=== PATIENT | female | born 1930 | race Caucasian/White ===

== ENCOUNTER 2018-05-21 16:24 | Emergency (ER) | payer MEDICARE, BC ==
[2018-05-21] MEDS ORDERED: HYDROmorphone 2 MG/ML Syringe ONE (16:46)
[2018-05-21] MEDS: HYDROmorphone 2 MG/ML Syringe IVPUSH ONE (16:50)
[2018-05-21] MEDS: Ketorolac 30 MG/ML SDV IM ONE ×2 (16:51→17:12)
[2018-05-21] MEDS: Ketorolac 30 MG/ML SDV ONE (16:56)
--- NOTE | 2018-05-21 17:08 | EDM.PDOC ---
ED HPI GENERAL MEDICAL PROBLEM - General Time Seen by Provider: 05/21/18 16:30 Source of Information: Reports: Patient History Limitations: Reports: No Limitations - History of Present Illness INITIAL COMMENTS - FREE TEXT/NARRATIVE: Pt is 87 tra old female presenting to emergency room with c/o pain in her right mid back. Pt claims it started when she was sitting on folding chair for long time in the house yesterday afternoon. When she got up felt severe sharp pain in her right midback. Since then every time she move her back gets spasms in her back. No radiation of pain. no weakness. tingling or numbness. Pt did try some vicodin last night and today morning. Has been sleeping with heating pad on but no improvement in pain. rates pain around 7-8/10. No other complaints. Onset Date: 05/21/18 Onset Time: 14:00 Duration: Getting Worse Location: Reports: Back Quality: Reports: Ache Severity: Moderate Improves with: Reports: None Worsens with: Reports: None Associated Symptoms: Denies: Confusion, Chest Pain, Cough, Diaphoresis, Fever/ Chills, Headaches, Nausea/Vomiting, Rash, Shortness of Breath, Weakness - Related Data Allergies Allergy/AdvReac Type Severity Reaction Status Date / Time cefaclor Allergy Rash Verified 05/21/18 16:47 diltiazem [From Cardizem] Allergy Rash Verified 05/21/18 16:51 hydrochlorothiazide Allergy Rash Verified 05/21/18 16:51 indapamide Allergy Rash Verified 05/21/18 16:51 lisinopril Allergy Rash Verified 05/21/18 16:51 metoclopramide [From Reglan] Allergy Rash Verified 05/21/18 16:51 morphine Allergy Itching Verified 05/21/18 16:47 moxifloxacin [From Avelox] Allergy Rash Verified 05/21/18 16:51 nitrofurantoin Allergy Rash Verified 05/21/18 16:51 Penicillins Allergy Rash Verified 05/21/18 16:47 sertraline [From Zoloft] Allergy Rash Verified 05/21/18 16:51 Sulfa (Sulfonamide Allergy Rash Verified 05/21/18 16:47 Antibiotics) tetrahydrozoline Allergy Rash Verified 05/21/18 16:51 ED ROS GENERAL - Review of Systems Review Of Systems: See Below Constitutional: Denies: Fever, Chills HEENT: Denies: Rhinitis, Throat Pain, Throat Swelling Respiratory: Denies: Shortness of Breath, Pleuritic Chest Pain, Cough, Sputum Cardiovascular: Denies: Chest Pain, Lightheadedness GI/Abdominal: Denies: Abdominal Pain, Nausea, Vomiting Musculoskeletal: Reports: Back Pain. Denies: Joint Pain, Joint Swelling Skin: Denies: Bruising, Pruritis, Rash Neurological: Denies: Confusion, Dizziness, Headache, Numbness, Tingling ED EXAM, GENERAL - Physical Exam Exam: See Below Exam Limited By: No Limitations General Appearance: Alert, WD/WN, Mild Distress Eye Exam: Bilateral Eye: EOMI, PERRL Ears: Normal External Exam, Normal Canal, Hearing Grossly Normal, Normal TMs Ear Exam: Bilateral Ear: Auricle Normal, Canal Normal, TM normal Nose: Normal Inspection, Normal Mucosa, No Blood Throat/Mouth: Normal Inspection, Normal Lips, Normal Teeth, Normal Gums, Normal Oropharynx, Normal Voice, No Airway Compromise Head: Atraumatic, Normocephalic Neck: Normal Inspection, Supple, Non-Tender, Full Range of Motion Respiratory/Chest: No Respiratory Distress, Lungs Clear, Normal Breath Sounds, No Accessory Muscle Use, Chest Non-Tender Cardiovascular: Normal Peripheral Pulses, Regular Rate, Rhythm, No Edema, No Gallop, No JVD, No Murmur, No Rub Back Exam: Normal Inspection, Decreased Range of Motion, Muscle Spasm (right mid thoracic region), Paraspinal Tenderness (right mid thoracic region). No: CVA Tenderness (R), CVA Tenderness (L), Vertebral Tenderness Neurological: Alert, Oriented, No Motor/Sensory Deficits Course - Vital Signs Text/Narrative:: Pt reassured that she has acute back muscle spasm. As her pain is localised and 8/10 in severity, she did receive Dilaudid 1mg with toradol 30mg IM. I have started her on Vicodin 5/325 with Toradol 10mg to alternate every 4 hrs for good pain control. Also Flexeril 5mg at bedtime. Advised intermittent heat for 15 minutes every 2-3 hrs. pain should gradually improve. Followup in clinic if pain not better in 3- 5days. - Orders/Labs/Meds Meds: Medications Discontinued Medications Generic Name Dose Route Start Last Admin Trade Name Freq PRN Reason Stop Dose Admin Hydromorphone HCl Confirm 05/21/18 16:46 Dilaudid Administered 05/21/18 16:47 Dose 2 mg .ROUTE .STK-MED ONE Hydromorphone HCl 1 mg 05/21/18 16:51 05/21/18 16:50 Dilaudid IVPUSH 05/21/18 16:52 1 mg ONETIME ONE Administration Ketorolac Tromethamine Confirm 05/21/18 16:46 05/21/18 16:56 Toradol Administered 05/21/18 16:47 Not Given Dose 30 mg .ROUTE .STK-MED ONE Ketorolac Tromethamine 30 mg 05/21/18 16:55 05/21/18 16:51 Toradol IM 05/21/18 16:56 30 mg ONETIME ONE Administration Departure - Departure Time of Disposition: 17:20 Disposition: Home, Self-Care 01 Condition: Good Clinical Impression: Back muscle spasm - Discharge Information *PRESCRIPTION DRUG MONITORING PROGRAM REVIEWED*: Not Applicable *COPY OF PRESCRIPTION DRUG MONITORING REPORT IN PATIENT ANDRE: Not Applicable Instructions: Muscle Cramps and Spasms, [id number] Referrals: PCP,None [Primary Care Provider] - Additional Instructions: Pt reassured that she has acute back muscle spasm. As her pain is localised and 8/10 in severity, she did receive Dilaudid 1mg with toradol 30mg IM. I have started her on Vicodin 5/325 with Toradol 10mg to alternate every 4 hrs for good pain control. Also Flexeril 5mg at bedtime. Advised intermittent heat for 15 minutes every 2-3 hrs. pain should gradually improve. Followup in clinic if pain not better in 3- 5days. - Problem List & Annotations (1) Back muscle spasm SNOMED Code(s): 523009583 Code(s): M62.830 - MUSCLE SPASM OF BACK Status: Acute Current Visit: Yes - Problem List Review Problem List Initiated/Reviewed/Updated: Yes - Assessment/Plan Assessment:: Back muscle spasm Plan: Pt reassured that she has acute back muscle spasm. As her pain is localised and 8/10 in severity, she did receive Dilaudid 1mg with toradol 30mg IM. I have started her on Vicodin 5/325 with Toradol 10mg to alternate every 4 hrs for good pain control. Also Flexeril 5mg at bedtime. Advised intermittent heat for 15 minutes every 2-3 hrs. pain should gradually improve. Followup in clinic if pain not better in 3- 5days.
[2018-05-21] MEDS: HYDROmorphone 2 MG/ML SDV IM ONE (17:12)
== END 2018-05-21 17:20 | disposition home or self-care (01) ==
LOC: LB.ED 16:24
DX: M62.830 Muscle spasm of back (principal); Z88.1 Allergy status to other antibiotic agents; Z88.5 Allergy status to narcotic agent; Z88.0 Allergy status to penicillin
CPT/HCPCS: 96372; 96374; 99283-25; J1170; J1885

== ENCOUNTER 2018-07-15 09:19 | Inpatient (IN) | payer MEDICARE ==
[2018-07-15] MEDS ORDERED: Sodium Chloride 0.9% 1,000 ML IV SCH (10:25)
[2018-07-15 10:35] LABS: HEMOGLOBIN A1C 7.2 % (4.5-6.2)
[2018-07-15] MEDS ORDERED: Sodium Chloride 0.45% 1,000 ML IV SCH (10:45)
--- NOTE | 2018-07-15 10:46 | CR ---
Date of Service: 07/15/18 Clinical Data: AP CHEST: Comparison is made to a prior exam dated 07/10/18. The patient has taken a poor inspiration. The cardiac pacer and pacer wires remain unchanged in position. The heart size is within normal limits. There are densities in both lung bases consistent with basilar atelectasis or infiltrate, pneumonia should be considered. No pneumothorax. No pleural effusions. The exam is otherwise unchanged from the prior. [id number] [facility]
[2018-07-15] MEDS ORDERED: Ondansetron 4 MG/2 ML SDV IV PRN (11:55)
[2018-07-15] MEDS ORDERED: Sodium Chloride 0.9% 10 ML Syringe FLUSH PRN (11:55)
[2018-07-15] MEDS ORDERED: Insulin Detemir 100 Units/ML 3 ML Pen ONE (12:00)
[2018-07-15] MEDS ORDERED: Trolamine Salicylate/Aloe Vera 10% Crm 85 GM Tube ONE (12:00)
[2018-07-15] MEDS ORDERED: Insulin Aspart 100 Units/ML 3 ML Pen ONE (12:00)
--- NOTE | 2018-07-15 12:01 | EDM.PDOC ---
ED HPI GENERAL MEDICAL PROBLEM - General Stated Complaint: SINUS, KNEE PAIN Time Seen by Provider: 07/15/18 09:46 Source of Information: Reports: Patient, Family History Limitations: Reports: No Limitations - History of Present Illness INITIAL COMMENTS - FREE TEXT/NARRATIVE: This is a 87yo F with generalized weakness, inability to get out of bed, cough, chest congestion, left knee pain and swelling (chronic), loss of appetite and malaise for the past day. Onset: Gradual Duration: Getting Worse Location: Reports: Generalized Severity: Severe Improves with: Reports: None Worsens with: Reports: None Associated Symptoms: Reports: Shortness of Breath, Weakness Treatments HEAD IRRIGATOR: Reports: Acetaminophen - Related Data Allergies Allergy/AdvReac Type Severity Reaction Status Date / Time adhesive tape Allergy Rash Verified 07/15/18 11:04 cefaclor Allergy Rash Verified 05/21/18 16:47 diltiazem [From Cardizem] Allergy Rash Verified 05/21/18 16:51 hydrochlorothiazide Allergy Rash Verified 05/21/18 16:51 indapamide Allergy Rash Verified 05/21/18 16:51 lisinopril Allergy Rash Verified 05/21/18 16:51 metoclopramide [From Reglan] Allergy Rash Verified 05/21/18 16:51 morphine Allergy Itching Verified 05/21/18 16:47 moxifloxacin [From Avelox] Allergy Rash Verified 05/21/18 16:51 nitrofurantoin Allergy Rash Verified 05/21/18 16:51 Penicillins Allergy Rash Verified 05/21/18 16:47 sertraline [From Zoloft] Allergy Rash Verified 05/21/18 16:51 Sulfa (Sulfonamide Allergy Rash Verified 05/21/18 16:47 Antibiotics) tetrahydrozoline Allergy Rash Verified 05/21/18 16:51 Home Meds: Home Meds Cefdinir [Omnicef] 300 mg PO BID 07/15/18 [History] Furosemide 20 mg PO WITHBREAKFAST 07/15/18 [History] Insulin Aspart [NovoLOG] 6 unit SQ ASDIRECTED 07/15/18 [History] Insulin Detemir [Levemir Flextouch] 17 unit SQ WITHLUNCH 07/15/18 [History] Losartan [Cozaar] 100 mg PO DAILY 07/15/18 [History] Melatonin/Pyridoxine HCl (B6) [Melatonin 5 mg Tablet] 5 mg PO BEDTIME PRN [History] Metoprolol Succinate [Toprol XL 100mg] 100 mg PO WITHBREAKFAST 07/15/18 [History ] Pravastatin [Pravachol] 40 mg PO DAILY 07/15/18 [History] Warfarin Sodium 1 mg ASDIRECTED 07/15/18 [History] Warfarin Sodium [Jantoven] 2 mg PO ASDIRECTED 07/15/18 [History] hydrALAZINE [Apresoline] 50 mg PO ASDIRECTED 07/15/18 [History] hydrALAZINE [Apresoline] 50 mg PO TIDMEALS 07/15/18 [History] ED ROS GENERAL - Review of Systems Review Of Systems: ROS reveals no pertinent complaints other than HPI. ED EXAM, GENERAL - Physical Exam Exam: See Below Exam Limited By: No Limitations General Appearance: Alert, WD/WN, Mild Distress Eye Exam: Bilateral Eye: EOMI, PERRL Ears: Normal External Exam Ear Exam: Bilateral Ear: TM normal Nose: Normal Inspection Throat/Mouth: Normal Inspection Head: Atraumatic, Normocephalic Neck: Normal Inspection, Supple, Non-Tender Respiratory/Chest: Decreased Breath Sounds, Crackles, Rhonchi Cardiovascular: Normal Peripheral Pulses, Regular Rate, Rhythm Peripheral Pulses: 2+: Dorsalis Pedis (L), Dorsalis Pedis (R) GI/Abdominal: Normal Bowel Sounds, Soft, Non-Tender, No Distention Extremities: Joint Swelling (left knee) Neurological: Alert, Oriented, CN II-XII Intact, Other (decreased hearing) Psychiatric: Normal Affect, Normal Mood Skin Exam: Warm, Dry, Intact Course - Vital Signs Last Recorded V/S: Last Vital Signs Temp 36.9 C 07/15/18 11:55 Pulse 59 L 07/15/18 11:55 Resp 18 07/15/18 11:55 BP 127/52 L 07/15/18 11:55 Pulse Ox 98 07/15/18 11:55 - Orders/Labs/Meds Orders: Active Orders 24 hr Category Date Time Status EKG Documentation Completion [RC] ASDIRECTED Care 07/15/18 10:01 Active CULTURE BLOOD [BC] Stat Lab 07/15/18 10:12 Received CULTURE BLOOD [BC] Stat Lab 07/15/18 10:20 Received Sodium Chloride 0.45% 1,000 ml Med 07/15/18 10:45 Active IV ASDIRECTED Medication Orders Acetaminophen (Tylenol) 650 mg PO Q4H PRN PRN Reason: Pain (Mild 1-3)/fever Furosemide (Lasix) 20 mg PO DAILY [facility] Furosemide (Lasix) 20 mg PO WITHBREAKFAST [facility] Hydralazine HCl (Apresoline) 50 mg PO TID [facility] Sodium Chloride (Sodium Chloride 0.45%) 1,000 mls @ 150 mls/hr IV ASDIRECTED DERICK Ceftriaxone Sodium 1 gm/ (Sodium Chloride) 50 mls @ 200 mls/hr IV Q24H [facility] Azithromycin 500 mg/ Sodium (Chloride) 250 mls @ 250 mls/hr IV Q24H [facility] Insulin Aspart (Novolog) 6 unit SUBCUT ASDIRECTED [facility] Last Admin: 07/15/18 13:00 Dose: 6 units Insulin Aspart (Novolog) 6 unit SUBCUT TIDMEALS [facility] Insulin Detemir (Levemir) 17 unit SUBCUT DAILY@1200 [facility] Last Admin: 07/15/18 13:00 Dose: 17 units Insulin Detemir (Levemir) 17 unit SUBCUT WITHLUNCH [facility] Losartan Potassium (Cozaar) 100 mg PO DAILY [facility] Losartan Potassium (Cozaar) 100 mg PO DAILY [facility] Melatonin (Melatonin) 6 mg PO BEDTIME [facility] Metoprolol Succinate (Toprol Xl) 100 mg PO DAILY [facility] Metoprolol Succinate (Toprol Xl) 100 mg PO WITHBREAKFAST [facility] Non-Formulary Medication (Melatonin/Pyridoxine Hcl (B6) [Melatonin 5 Mg Tablet] ) 5 mg PO BEDTIME PRN PRN Reason: Sleep Ondansetron HCl (Zofran) 4 mg IV Q4H PRN PRN Reason: Nausea/Vomiting Stop: 07/15/18 23:59 Pravastatin Sodium (Pravachol) 40 mg PO BEDTIME [facility] Pravastatin Sodium (Pravachol) 40 mg PO DAILY [facility] Sodium Chloride (Saline Flush) 10 ml FLUSH ASDIRECTED PRN PRN Reason: Keep Vein Open Warfarin Sodium (Coumadin) 2 mg PO [email or web address] [facility] Warfarin Sodium (Coumadin) 1 mg PO [email or web address] [facility] Warfarin Sodium (Coumadin) 2 mg PO ASDIRECTED [facility] Warfarin Sodium (Coumadin) 1 mg PO ASDIRECTED [facility] Labs: Laboratory Tests 07/15/18 07/15/18 07/15/18 Range/Units 10:05 10:05 10:05 WBC 8.0 D (4.0-11.0) K/uL RBC 3.76 L (3.80-5.80) M/uL Hgb 10.9 L (11.5-16.5) g/dL Hct 33.4 L (37.0-47.0) % MCV 89 (76-96) fL MCH 29.0 (27.0-32.0) pg MCHC 32.6 (31.0-35.0) g/dL RDW 12.8 (11.0-16.0) % Plt Count 195 (150-500) K/uL MPV 10.4 H (6.0-10.0) fL Neut % (Auto) 82.3 H (45.0-70.0) % Lymph % (Auto) 9.4 L (20.0-40.0) % Tyrrell % (Auto) 7.3 (3.0-10.0) % Eos % (Auto) 0.9 L (1.0-5.0) % Baso % (Auto) 0.1 (0.0-0.5) % Neut # (Auto) 6.56 (2.00-7.50) K/uL Lymph # (Auto) 0.75 L (1.50-4.00) K/uL Tyrrell # (Auto) 0.58 (0.20-0.80) K/uL Eos # (Auto) 0.07 (0.04-0.40) K/uL Baso # (Auto) 0.01 L (0.02-0.10) K/uL PT 31.2 H D (9.0-11.5) sec INR 3.3 D (1.0-3.5) Sodium 139 (136-145) mmol/L Potassium 4.6 (3.5-5.1) mmol/L Chloride 105 (98-107) mmol/L Carbon Dioxide 25.6 (21.0-32.0) mmol/L Anion Gap 13.0 (5.0-15.0) mmol/L BUN 40 H (8-26) mg/dL Creatinine 1.18 H (0.55-1.02) mg/dL Est Cr Clr Drug Dosing TNP Estimated GFR (MDRD) 43 L (>60) MLS/MIN BUN/Creatinine Ratio 33.9 H (6-25) Glucose 216 H (74-100) mg/dL Hemoglobin A1c (4.5-6.2) % Calcium 7.9 L (8.5-10.1) mg/dL Total Bilirubin 0.5 (0.0-1.0) mg/dL AST 22 (15-37) U/L ALT 22 (12-78) U/L Alkaline Phosphatase 77 (46-116) U/L Troponin I < 0.017 (0.000-0.060) ng/mL B-Natriuretic Peptide 1106 H (0-450) pg/mL Total Protein 6.4 (6.4-8.2) g/dL Albumin 2.6 L (3.4-5.0) g/dL Globulin 3.8 (2.2-4.2) g/dL Albumin/Globulin Ratio 0.7 L (0.8-2.0) TSH, Ultra Sensitive 1.402 (0.358-3.740) uIU/mL 07/15/18 Range/Units 10:05 WBC (4.0-11.0) K/uL RBC (3.80-5.80) M/uL Hgb (11.5-16.5) g/dL Hct (37.0-47.0) % MCV (76-96) fL MCH (27.0-32.0) pg MCHC (31.0-35.0) g/dL RDW (11.0-16.0) % Plt Count (150-500) K/uL MPV (6.0-10.0) fL Neut % (Auto) (45.0-70.0) % Lymph % (Auto) (20.0-40.0) % Tyrrell % (Auto) (3.0-10.0) % Eos % (Auto) (1.0-5.0) % Baso % (Auto) (0.0-0.5) % Neut # (Auto) (2.00-7.50) K/uL Lymph # (Auto) (1.50-4.00) K/uL Tyrrell # (Auto) (0.20-0.80) K/uL Eos # (Auto) (0.04-0.40) K/uL Baso # (Auto) (0.02-0.10) K/uL PT (9.0-11.5) sec INR (1.0-3.5) Sodium (136-145) mmol/L Potassium (3.5-5.1) mmol/L Chloride (98-107) mmol/L Carbon Dioxide (21.0-32.0) mmol/L Anion Gap (5.0-15.0) mmol/L BUN (8-26) mg/dL Creatinine (0.55-1.02) mg/dL Est Cr Clr Drug Dosing Estimated GFR (MDRD) (>60) MLS/MIN BUN/Creatinine Ratio (6-25) Glucose (74-100) mg/dL Hemoglobin A1c 7.2 H (4.5-6.2) % Calcium (8.5-10.1) mg/dL Total Bilirubin (0.0-1.0) mg/dL AST (15-37) U/L ALT (12-78) U/L Alkaline Phosphatase (46-116) U/L Troponin I (0.000-0.060) ng/mL B-Natriuretic Peptide (0-450) pg/mL Total Protein (6.4-8.2) g/dL Albumin (3.4-5.0) g/dL Globulin (2.2-4.2) g/dL Albumin/Globulin Ratio (0.8-2.0) TSH, Ultra Sensitive (0.358-3.740) uIU/mL Meds: Medications Generic Name Dose Route Start Last Admin Trade Name Freq PRN Reason Stop Dose Admin Acetaminophen 650 mg 07/15/18 11:55 Tylenol PO Q4H PRN Pain (Mild 1-3)/fever Furosemide 20 mg 07/16/18 08:00 Lasix PO DAILY DERICK Furosemide 20 mg 07/16/18 07:00 Lasix PO WITHBREAKFAST [facility] Hydralazine HCl 50 mg 07/15/18 20:00 Apresoline PO TID DERICK Sodium Chloride 1,000 mls @ 150 mls/hr 07/15/18 10:45 Sodium Chloride 0.45% IV ASDIRECTED DERICK Ceftriaxone Sodium 1 gm/ 50 mls @ 200 mls/hr 07/15/18 18:00 Sodium Chloride IV Q24H DERICK Azithromycin 500 mg/ Sodium 250 mls @ 250 mls/hr 07/15/18 17:00 Chloride IV Q24H [facility] Insulin Aspart 6 unit 07/15/18 12:00 07/15/18 13:00 Novolog SUBCUT 6 units ASDIRECTED [facility] Administration Insulin Aspart 6 unit 07/15/18 18:00 Novolog SUBCUT TIDMEALS [facility] Insulin Detemir 17 unit 07/16/18 12:00 07/15/18 13:00 Levemir SUBCUT 17 units DAILY@1200 [facility] Administration Insulin Detemir 17 unit 07/16/18 11:00 Levemir SUBCUT WITHLUNCH [facility] Losartan Potassium 100 mg 07/16/18 08:00 Cozaar PO DAILY [facility] Losartan Potassium 100 mg 07/16/18 08:00 Cozaar PO DAILY [facility] Melatonin 6 mg 07/15/18 20:00 Melatonin PO BEDTIME [facility] Metoprolol Succinate 100 mg 07/16/18 08:00 Toprol Xl PO DAILY [facility] Metoprolol Succinate 100 mg 07/16/18 07:00 Toprol Xl PO WITHBREAKFAST [facility] Non-Formulary Medication 5 mg 07/15/18 17:08 Melatonin/Pyridoxine Hcl (B6) [Melatonin 5 Mg Tablet] PO BEDTIME PRN Sleep Ondansetron HCl 4 mg 07/15/18 11:55 Zofran IV 07/15/18 23:59 Q4H PRN Nausea/Vomiting Pravastatin Sodium 40 mg 07/15/18 20:00 Pravachol PO BEDTIME [facility] Pravastatin Sodium 40 mg 07/16/18 08:00 Pravachol PO DAILY [facility] Sodium Chloride 10 ml 07/15/18 11:55 Saline Flush FLUSH ASDIRECTED PRN Keep Vein Open Warfarin Sodium 2 mg 07/16/18 18:00 Coumadin PO [email or web address] [facility] Warfarin Sodium 1 mg 07/15/18 18:00 Coumadin PO [email or web address] [facility] Warfarin Sodium 2 mg 07/15/18 17:15 Coumadin PO ASDIRECTED [facility] Warfarin Sodium 1 mg 07/15/18 17:15 Coumadin PO ASDIRECTED [facility] Discontinued Medications Generic Name Dose Route Start Last Admin Trade Name Freq PRN Reason Stop Dose Admin Insulin Detemir 17 unit 07/15/18 13:50 Levemir SUBCUT 07/15/18 13:51 ONETIME ONE Departure - Departure Time of Disposition: 14:00 Disposition: Admitted As Inpatient 65 Condition: Fair Clinical Impression: Generalized weakness, Loss of appetite Left knee pain Qualifiers: Chronicity: unspecified Qualified Code(s): M25.562 - Pain in left knee Pneumonia Qualifiers: Pneumonia type: due to unspecified organism Laterality: bilateral Lung location : lower lobe of lung Qualified Code(s): J18.1 - Lobar pneumonia, unspecified organism - Discharge Information - Problem List & Annotations (1) Generalized weakness SNOMED Code(s): 37975764 Code(s): R53.1 - WEAKNESS Status: Acute Priority: High Current Visit: Yes (2) Left knee pain SNOMED Code(s): 69280676 Code(s): M25.562 - PAIN IN LEFT KNEE Status: Acute Priority: High Current Visit: Yes Qualifiers: Chronicity: unspecified Qualified Code(s): M25.562 - Pain in left knee (3) Loss of appetite SNOMED Code(s): 00716362 Code(s): R63.0 - ANOREXIA Status: Acute Priority: High Current Visit: Yes (4) Pneumonia SNOMED Code(s): 590989334 Code(s): J18.9 - PNEUMONIA, UNSPECIFIED ORGANISM Status: Acute Priority: High Current Visit: Yes Qualifiers: Pneumonia type: due to unspecified organism Laterality: bilateral Lung location: lower lobe of lung Qualified Code(s): J18.1 - Lobar pneumonia, unspecified organism - Problem List Review Problem List Initiated/Reviewed/Updated: Yes - My Orders Last 24 Hours: My Active Orders 07/15/18 10:01 EKG Documentation Completion [RC] ASDIRECTED 07/15/18 10:12 CULTURE BLOOD [BC] Stat 07/15/18 10:20 CULTURE BLOOD [BC] Stat 07/15/18 10:45 Sodium Chloride 0.45% 1,000 ml IV ASDIRECTED - Assessment/Plan Last 24 Hours: My Active Orders 07/15/18 10:01 EKG Documentation Completion [RC] ASDIRECTED 07/15/18 10:12 CULTURE BLOOD [BC] Stat 07/15/18 10:20 CULTURE BLOOD [BC] Stat 07/15/18 10:45 Sodium Chloride 0.45% 1,000 ml IV ASDIRECTED Plan: Patient admitted for IV antibiotics. We will start fluid hydration at 150mL/hr. Discussed labs and cultures. F/u labs and cultures. Left knee to be immobilized at this time (patient in no pain with no movement). Discussed cortisone injection once we have resolved her other concerns. PT/OT for ambulation and movement.
[2018-07-15] MEDS: Insulin Aspart 100 Units/ML 3 ML Pen SUBCUT SCH ×3 (13:00→20:22)
[2018-07-15] MEDS ORDERED: Insulin Detemir 100 Units/ML 3 ML Pen SUBCUT ONE (13:50)
[2018-07-15] MEDS ORDERED: Azithromycin 500 MG AdvVial IV SCH (17:00)
[2018-07-15] MEDS ORDERED: MELATONIN PO PRN (17:08)
[2018-07-15] MEDS ORDERED: PYRIDOXINE HCL PO PRN (17:08)
[2018-07-15] MEDS ORDERED: [UNRECOGNIZED DRUG - OTHER] PO PRN (17:08)
[2018-07-15] MEDS ORDERED: Warfarin 2 MG Tab PO SCH (17:15)
[2018-07-15] MEDS ORDERED: cefTRIAXone 1 GM in Sodium Chloride 0.9% 50 ML IV SCH (18:00)
[2018-07-15] MEDS: Azithromycin 500 MG in Sodium Chloride 0.9% 250 ML IV SCH (18:17)
[2018-07-15] MEDS ORDERED: Melatonin 10 MG Cap PO SCH (20:00)
[2018-07-15] MEDS: hydrALAZINE 25 MG Tab PO SCH (20:25)
[2018-07-15] MEDS: Pravastatin 40 MG Tab PO SCH (20:26)
[2018-07-15] MEDS: Melatonin 3 MG Tab PO SCH (20:26)
[2018-07-16] MEDS: hydrALAZINE 25 MG Tab PO SCH ×3 (07:32→20:18)
[2018-07-16] MEDS ORDERED: Metoprolol Succinate 100 MG Tab.ER PO SCH (08:00)
[2018-07-16] MEDS ORDERED: Furosemide 20 MG Tab PO SCH (08:00)
[2018-07-16] MEDS ORDERED: Losartan 50 MG Tab PO SCH (08:00)
[2018-07-16] MEDS ORDERED: Pravastatin 40 MG Tab PO SCH (08:00)
[2018-07-16] MEDS: Insulin Aspart 100 Units/ML 3 ML Pen SUBCUT SCH ×3 (08:18→17:18)
[2018-07-16] MEDS: Acetaminophen 325 MG Tab PO PRN ×3 (08:22→20:16)
[2018-07-16] MEDS: Losartan 50 MG Tab PO SCH (10:57)
[2018-07-16] MEDS: Metoprolol Succinate 100 MG Tab.ER PO SCH (10:57)
[2018-07-16] MEDS: Furosemide 20 MG Tab PO SCH (10:57)
[2018-07-16] MEDS ORDERED: Trolamine Salicylate/Aloe Vera 10% Crm 85 GM Tube TOP PRN (11:38)
[2018-07-16] MEDS: Insulin Detemir 100 Units/ML 3 ML Pen SUBCUT SCH (11:49)
[2018-07-16] MEDS ORDERED: Insulin Detemir 100 Units/ML 3 ML Pen SUBCUT SCH (12:00)
[2018-07-16] MEDS: Ketorolac 30 MG/ML SDV IM PRN ×2 (12:10→21:40)
[2018-07-16] MEDS ORDERED: cefTRIAXone 1 GM in Sodium Chloride 0.9% 100 ML IV SCH (14:23)
[2018-07-16] MEDS: Azithromycin 500 MG in Sodium Chloride 0.9% 250 ML IV SCH (16:16)
[2018-07-16] MEDS ORDERED: Warfarin 2 MG Tab PO SCH (18:00)
[2018-07-16] MEDS: Melatonin 3 MG Tab PO SCH (20:18)
[2018-07-16] MEDS: Pravastatin 40 MG Tab PO SCH (20:19)
[2018-07-17] MEDS: Metoprolol Succinate 100 MG Tab.ER PO SCH (07:53)
[2018-07-17] MEDS: Furosemide 20 MG Tab PO SCH (07:53)
[2018-07-17] MEDS: Insulin Aspart 100 Units/ML 3 ML Pen SUBCUT SCH ×3 (08:28→17:57)
--- NOTE | 2018-07-17 08:33 | PCM.PN ---
- General Info Date of Service: 07/16/18 Subjective Update: Patient continues to feel weak. She states she has some improvement. There is minimal cough. Patient denies fever or chills. Malaise has improved. - Review of Systems General: Reports: Weakness, Fatigue, Malaise HEENT: Reports: No Symptoms Pulmonary: Reports: Cough Cardiovascular: Reports: No Symptoms Gastrointestinal: Reports: No Symptoms Genitourinary: Reports: No Symptoms Musculoskeletal: Reports: No Symptoms Skin: Reports: No Symptoms Neurological: Reports: Weakness - Patient Data Vitals - Most Recent: Last Vital Signs Temp 36.8 C 07/17/18 07:50 Pulse 60 07/17/18 07:53 Resp 18 07/17/18 07:50 BP 120/63 07/17/18 07:53 Pulse Ox 96 07/17/18 07:50 Weight - Most Recent: 99.79 kg I&O - Last 24 Hours: Intake & Output 07/16/18 07/17/18 07/17/18 22:59 06:59 14:59 Intake Total 450 200 Balance 450 200 Lab Results Last 24 Hours: Laboratory Results - last 24 hr 07/16/18 07/16/18 07/17/18 Range/Units 11:53 17:09 06:34 WBC (4.0-11.0) K/uL RBC (3.80-5.80) M/uL Hgb (11.5-16.5) g/dL Hct (37.0-47.0) % MCV (76-96) fL MCH (27.0-32.0) pg MCHC (31.0-35.0) g/dL RDW (11.0-16.0) % Plt Count (150-500) K/uL MPV (6.0-10.0) fL Neut % (Auto) (45.0-70.0) % Lymph % (Auto) (20.0-40.0) % [place] % (Auto) (3.0-10.0) % Eos % (Auto) (1.0-5.0) % Baso % (Auto) (0.0-0.5) % Neut # (Auto) (2.00-7.50) K/uL Lymph # (Auto) (1.50-4.00) K/uL [place] # (Auto) (0.20-0.80) K/uL Eos # (Auto) (0.04-0.40) K/uL Baso # (Auto) (0.02-0.10) K/uL Sodium (136-145) mmol/L Potassium (3.5-5.1) mmol/L Chloride (98-107) mmol/L Carbon Dioxide (21.0-32.0) mmol/L Anion Gap (5.0-15.0) mmol/L BUN (8-26) mg/dL Creatinine (0.55-1.02) mg/dL Est Cr Clr Drug Dosing mL/min Estimated GFR (MDRD) (>60) MLS/MIN BUN/Creatinine Ratio (6-25) Glucose (74-100) mg/dL POC Glucose 330 H 227 H 79 (74-110) mg/dL Calcium (8.5-10.1) mg/dL Total Bilirubin (0.0-1.0) mg/dL AST (15-37) U/L ALT (12-78) U/L Alkaline Phosphatase (46-116) U/L Total Protein (6.4-8.2) g/dL Albumin (3.4-5.0) g/dL Globulin (2.2-4.2) g/dL Albumin/Globulin Ratio (0.8-2.0) 07/17/18 07/17/18 Range/Units 07:10 07:10 WBC 6.5 D (4.0-11.0) K/uL RBC 3.37 L (3.80-5.80) M/uL Hgb 9.9 L (11.5-16.5) g/dL Hct 30.0 L (37.0-47.0) % MCV 89 (76-96) fL MCH 29.4 (27.0-32.0) pg MCHC 33.0 (31.0-35.0) g/dL RDW 12.5 (11.0-16.0) % Plt Count 209 (150-500) K/uL MPV 10.3 H (6.0-10.0) fL Neut % (Auto) 58.7 (45.0-70.0) % Lymph % (Auto) 23.7 (20.0-40.0) % [place] % (Auto) 13.9 H (3.0-10.0) % Eos % (Auto) 3.4 (1.0-5.0) % Baso % (Auto) 0.3 (0.0-0.5) % Neut # (Auto) 3.79 (2.00-7.50) K/uL Lymph # (Auto) 1.53 (1.50-4.00) K/uL [place] # (Auto) 0.90 H (0.20-0.80) K/uL Eos # (Auto) 0.22 (0.04-0.40) K/uL Baso # (Auto) 0.02 (0.02-0.10) K/uL Sodium 141 (136-145) mmol/L Potassium 4.5 (3.5-5.1) mmol/L Chloride 106 (98-107) mmol/L Carbon Dioxide 25.7 (21.0-32.0) mmol/L Anion Gap 13.8 (5.0-15.0) mmol/L BUN 29 H (8-26) mg/dL Creatinine 1.25 H D (0.55-1.02) mg/dL Est Cr Clr Drug Dosing 32.51 mL/min Estimated GFR (MDRD) 40 L (>60) MLS/MIN BUN/Creatinine Ratio 23.2 (6-25) Glucose 74 D (74-100) mg/dL POC Glucose (74-110) mg/dL Calcium 7.5 L (8.5-10.1) mg/dL Total Bilirubin 0.4 D (0.0-1.0) mg/dL AST 17 (15-37) U/L ALT 15 (12-78) U/L Alkaline Phosphatase 63 (46-116) U/L Total Protein 5.5 L (6.4-8.2) g/dL Albumin 1.8 L (3.4-5.0) g/dL Globulin 3.7 (2.2-4.2) g/dL Albumin/Globulin Ratio 0.5 L (0.8-2.0) Juwan Results Last 24 Hours: Microbiology 07/15/18 10:12 Aerobic Blood Culture - Preliminary Blood - Arm, Left NO GROWTH AFTER 1 DAY Anaerobic Blood Culture - Preliminary NO GROWTH AFTER 1 DAY 07/15/18 10:20 Aerobic Blood Culture - Preliminary Blood - Arm, Left NO GROWTH AFTER 1 DAY Anaerobic Blood Culture - Preliminary NO GROWTH AFTER 1 DAY Med Orders - Current: Current Medications Acetaminophen (Tylenol) 650 mg PO Q4H PRN PRN Reason: Pain (Mild 1-3)/fever Last Admin: 07/16/18 20:16 Dose: 650 mg Furosemide (Lasix) 20 mg PO WITHBREAKFAST [facility] Last Admin: 07/17/18 07:53 Dose: 20 mg Hydralazine HCl (Apresoline) 50 mg PO TID [facility] Last Admin: 07/16/18 20:18 Dose: 50 mg Sodium Chloride (Sodium Chloride 0.45%) 1,000 mls @ 150 mls/hr IV ASDIRECTED [facility] Last Admin: 07/15/18 10:45 Dose: 150 mls/hr Azithromycin 500 mg/ Sodium (Chloride) 250 mls @ 250 mls/hr IV Q24H [facility] Last Admin: 07/16/18 16:16 Dose: 250 mls/hr Sodium Chloride (Normal Saline) 1,000 mls @ 999 mls/hr IV ASDIRECTED [facility] Last Admin: 07/15/18 10:30 Dose: 999 mls/hr Ceftriaxone Sodium 1 gm/ (Sodium Chloride) 100 mls @ 400 mls/hr IV Q24H [facility] Last Admin: 07/16/18 14:36 Dose: 400 mls/hr Insulin Aspart (Novolog) 6 unit SUBCUT TIDMEALS [facility] Last Admin: 07/17/18 08:28 Dose: 6 units Insulin Detemir (Levemir) 17 unit SUBCUT WITHLUNCH [facility] Last Admin: 07/16/18 11:49 Dose: 17 units Ketorolac Tromethamine (Toradol) 30 mg IM Q6H PRN PRN Reason: Pain (moderate 4-6) Last Admin: 07/16/18 21:40 Dose: 30 mg Losartan Potassium (Cozaar) 100 mg PO DAILY [facility] Last Admin: 07/16/18 10:57 Dose: Not Given Melatonin (Melatonin) 6 mg PO BEDTIME [facility] Last Admin: 07/16/18 20:18 Dose: 6 mg Metoprolol Succinate (Toprol Xl) 100 mg PO WITHBREAKFAST [facility] Last Admin: 07/17/18 07:53 Dose: 100 mg Pravastatin Sodium (Pravachol) 40 mg PO BEDTIME [facility] Last Admin: 07/16/18 20:19 Dose: 40 mg Sodium Chloride (Saline Flush) 10 ml FLUSH ASDIRECTED PRN PRN Reason: Keep Vein Open Trolamine Salicylate (Aspercreme 10%) 1 gm TOP Q1H PRN PRN Reason: knee pain Last Admin: 07/16/18 12:30 Dose: 1 applic Warfarin Sodium (Coumadin) 2 mg PO SuTuThSa@1800 [facility] Last Admin: 07/16/18 17:17 Dose: 2 mg Warfarin Sodium (Coumadin) 1 mg PO MoWeFr@1800 [facility] Last Admin: 07/15/18 20:22 Dose: Not Given Discontinued Medications Furosemide (Lasix) 20 mg PO DAILY [facility] Last Admin: 07/16/18 07:30 Dose: 20 mg Ceftriaxone Sodium 1 gm/ (Sodium Chloride) 50 mls @ 200 mls/hr IV Q24H [facility] Last Admin: 07/15/18 20:10 Dose: 200 mls/hr Insulin Aspart (Novolog) 6 unit SUBCUT ASDIRECTED [facility] Last Admin: 07/15/18 18:19 Dose: 6 units Insulin Aspart (Novolog) 300 unit .ROUTE .STK-MED ONE Stop: 07/15/18 12:01 Insulin Detemir (Levemir) 17 unit SUBCUT ONETIME ONE Stop: 07/15/18 13:51 Last Admin: 07/16/18 03:08 Dose: Not Given Insulin Detemir (Levemir) 17 unit SUBCUT DAILY@1200 [facility] Last Admin: 07/15/18 13:00 Dose: 17 units Insulin Detemir (Levemir) 300 unit .ROUTE .STK-MED ONE Stop: 07/15/18 12:01 Losartan Potassium (Cozaar) 100 mg PO DAILY [facility] Last Admin: 07/16/18 07:33 Dose: 100 mg Metoprolol Succinate (Toprol Xl) 100 mg PO DAILY [facility] Last Admin: 07/16/18 07:30 Dose: 100 mg Non-Formulary Medication (Melatonin/Pyridoxine Hcl (B6) [Melatonin 5 Mg Tablet] ) 5 mg PO BEDTIME PRN PRN Reason: Sleep Ondansetron HCl (Zofran) 4 mg IV Q4H PRN PRN Reason: Nausea/Vomiting Stop: 07/15/18 23:59 Pravastatin Sodium (Pravachol) 40 mg PO DAILY [facility] Last Admin: 07/16/18 07:34 Dose: 40 mg Trolamine Salicylate (Aspercreme 10%) 85 gm .ROUTE .STK-MED ONE Stop: 07/15/18 12:01 Warfarin Sodium (Coumadin) 2 mg PO ASDIRECTED [facility] Warfarin Sodium (Coumadin) 1 mg PO ASDIRECTED [facility] - Exam General: Alert, Oriented, Cooperative HEENT: Pupils Equal, Pupils Reactive, EOMI Neck: Supple Lungs: Decreased Breath Sounds, Rhonchi Cardiovascular: Regular Rate, Regular Rhythm GI/Abdominal Exam: Normal Bowel Sounds, Soft, Non-Tender, No Abnormal Bruit Back Exam: Normal Inspection Extremities: Normal Inspection Peripheral Pulses: 2+: Dorsalis Pedis (L), Dorsalis Pedis (R) Skin: Warm, Dry, Intact Neurological: No New Focal Deficit - Problem List & Annotations (1) Generalized weakness SNOMED Code(s): 64530127 Code(s): R53.1 - WEAKNESS Status: Acute Priority: High Current Visit: Yes (2) Left knee pain SNOMED Code(s): 97638346 Code(s): M25.562 - PAIN IN LEFT KNEE Status: Acute Priority: High Current Visit: Yes Qualifiers: Chronicity: unspecified Qualified Code(s): M25.562 - Pain in left knee (3) Loss of appetite SNOMED Code(s): 99570739 Code(s): R63.0 - ANOREXIA Status: Acute Priority: High Current Visit: Yes (4) Pneumonia SNOMED Code(s): 572246971 Code(s): J18.9 - PNEUMONIA, UNSPECIFIED ORGANISM Status: Acute Priority: High Current Visit: Yes Qualifiers: Pneumonia type: due to unspecified organism Laterality: bilateral Lung location: lower lobe of lung Qualified Code(s): J18.1 - Lobar pneumonia, unspecified organism - Problem List Review Problem List Initiated/Reviewed/Updated: Yes - My Orders Last 24 Hours: My Active Orders 07/16/18 08:00 Losartan [Cozaar] 100 mg PO DAILY 07/16/18 11:00 Insulin Detemir [Levemir] 17 unit SUBCUT WITHLUNCH 07/16/18 11:13 Ketorolac [Toradol] 30 mg IM Q6H PRN 07/16/18 11:38 Trolamine Salicylate/Aloe Vera [Aspercreme 10%] 1 gm TOP Q1H PRN 07/16/18 14:23 cefTRIAXone [Rocephin] 1 gm Sodium Chloride 0.9% [Normal Saline] 100 ml IV Q24H 07/16/18 18:00 Warfarin [Coumadin] 2 mg PO SuTuThSa@1800 07/18/18 05:11 CBC WITH AUTO DIFF [HEME] AM COMPREHENSIVE METABOLIC PN,CMP [CHEM] AM - Plan Plan:: Patient will continue current IV antibiotics. She has improved symptomatically and her labs have remained stable. No changes to management today. Continue PT/ OT.
[2018-07-17] MEDS: Losartan 50 MG Tab PO SCH (10:24)
[2018-07-17] MEDS: hydrALAZINE 25 MG Tab PO SCH ×3 (10:24→19:58)
--- NOTE | 2018-07-17 11:53 | PCM.PN ---
- General Info Date of Service: 07/17/18 Subjective Update: Patient states she does feel much better but continues to be weak. She denies any fever or chills and her malaise has mostly resolved. She continues to be weak and fatigued. Functional Status: Reports: Pain Controlled, Tolerating Diet, Ambulating - Review of Systems General: Reports: Weakness HEENT: Reports: No Symptoms Pulmonary: Reports: No Symptoms Cardiovascular: Reports: No Symptoms Gastrointestinal: Reports: No Symptoms Genitourinary: Reports: No Symptoms Musculoskeletal: Reports: No Symptoms Skin: Reports: No Symptoms Neurological: Reports: Weakness - Patient Data Vitals - Most Recent: Last Vital Signs Temp 36.8 C 07/17/18 07:50 Pulse 60 07/17/18 07:53 Resp 18 07/17/18 07:50 BP 120/63 07/17/18 07:53 Pulse Ox 96 07/17/18 07:50 Weight - Most Recent: 99.79 kg I&O - Last 24 Hours: Intake & Output 07/16/18 07/17/18 07/17/18 22:59 06:59 14:59 Intake Total 450 200 Balance 450 200 Lab Results Last 24 Hours: Laboratory Results - last 24 hr 07/16/18 07/16/18 07/17/18 Range/Units 11:53 17:09 06:34 WBC (4.0-11.0) K/uL RBC (3.80-5.80) M/uL Hgb (11.5-16.5) g/dL Hct (37.0-47.0) % MCV (76-96) fL MCH (27.0-32.0) pg MCHC (31.0-35.0) g/dL RDW (11.0-16.0) % Plt Count (150-500) K/uL MPV (6.0-10.0) fL Neut % (Auto) (45.0-70.0) % Lymph % (Auto) (20.0-40.0) % [place] % (Auto) (3.0-10.0) % Eos % (Auto) (1.0-5.0) % Baso % (Auto) (0.0-0.5) % Neut # (Auto) (2.00-7.50) K/uL Lymph # (Auto) (1.50-4.00) K/uL [place] # (Auto) (0.20-0.80) K/uL Eos # (Auto) (0.04-0.40) K/uL Baso # (Auto) (0.02-0.10) K/uL Sodium (136-145) mmol/L Potassium (3.5-5.1) mmol/L Chloride (98-107) mmol/L Carbon Dioxide (21.0-32.0) mmol/L Anion Gap (5.0-15.0) mmol/L BUN (8-26) mg/dL Creatinine (0.55-1.02) mg/dL Est Cr Clr Drug Dosing mL/min Estimated GFR (MDRD) (>60) MLS/MIN BUN/Creatinine Ratio (6-25) Glucose (74-100) mg/dL POC Glucose 330 H 227 H 79 (74-110) mg/dL Calcium (8.5-10.1) mg/dL Total Bilirubin (0.0-1.0) mg/dL AST (15-37) U/L ALT (12-78) U/L Alkaline Phosphatase (46-116) U/L Total Protein (6.4-8.2) g/dL Albumin (3.4-5.0) g/dL Globulin (2.2-4.2) g/dL Albumin/Globulin Ratio (0.8-2.0) 07/17/18 07/17/18 Range/Units 07:10 07:10 WBC 6.5 D (4.0-11.0) K/uL RBC 3.37 L (3.80-5.80) M/uL Hgb 9.9 L (11.5-16.5) g/dL Hct 30.0 L (37.0-47.0) % MCV 89 (76-96) fL MCH 29.4 (27.0-32.0) pg MCHC 33.0 (31.0-35.0) g/dL RDW 12.5 (11.0-16.0) % Plt Count 209 (150-500) K/uL MPV 10.3 H (6.0-10.0) fL Neut % (Auto) 58.7 (45.0-70.0) % Lymph % (Auto) 23.7 (20.0-40.0) % [place] % (Auto) 13.9 H (3.0-10.0) % Eos % (Auto) 3.4 (1.0-5.0) % Baso % (Auto) 0.3 (0.0-0.5) % Neut # (Auto) 3.79 (2.00-7.50) K/uL Lymph # (Auto) 1.53 (1.50-4.00) K/uL [place] # (Auto) 0.90 H (0.20-0.80) K/uL Eos # (Auto) 0.22 (0.04-0.40) K/uL Baso # (Auto) 0.02 (0.02-0.10) K/uL Sodium 141 (136-145) mmol/L Potassium 4.5 (3.5-5.1) mmol/L Chloride 106 (98-107) mmol/L Carbon Dioxide 25.7 (21.0-32.0) mmol/L Anion Gap 13.8 (5.0-15.0) mmol/L BUN 29 H (8-26) mg/dL Creatinine 1.25 H D (0.55-1.02) mg/dL Est Cr Clr Drug Dosing 32.51 mL/min Estimated GFR (MDRD) 40 L (>60) MLS/MIN BUN/Creatinine Ratio 23.2 (6-25) Glucose 74 D (74-100) mg/dL POC Glucose (74-110) mg/dL Calcium 7.5 L (8.5-10.1) mg/dL Total Bilirubin 0.4 D (0.0-1.0) mg/dL AST 17 (15-37) U/L ALT 15 (12-78) U/L Alkaline Phosphatase 63 (46-116) U/L Total Protein 5.5 L (6.4-8.2) g/dL Albumin 1.8 L (3.4-5.0) g/dL Globulin 3.7 (2.2-4.2) g/dL Albumin/Globulin Ratio 0.5 L (0.8-2.0) Juwan Results Last 24 Hours: Microbiology 07/15/18 10:12 Aerobic Blood Culture - Preliminary Blood - Arm, Left NO GROWTH AFTER 2 DAYS Anaerobic Blood Culture - Preliminary NO GROWTH AFTER 2 DAYS 07/15/18 10:20 Aerobic Blood Culture - Preliminary Blood - Arm, Left NO GROWTH AFTER 2 DAYS Anaerobic Blood Culture - Preliminary NO GROWTH AFTER 2 DAYS Med Orders - Current: Current Medications Acetaminophen (Tylenol) 650 mg PO Q4H PRN PRN Reason: Pain (Mild 1-3)/fever Last Admin: 07/16/18 20:16 Dose: 650 mg Furosemide (Lasix) 20 mg PO WITHBREAKFAST [facility] Last Admin: 07/17/18 07:53 Dose: 20 mg Hydralazine HCl (Apresoline) 50 mg PO TID [facility] Last Admin: 07/17/18 10:24 Dose: Not Given Sodium Chloride (Sodium Chloride 0.45%) 1,000 mls @ 150 mls/hr IV ASDIRECTED [facility] Last Admin: 07/15/18 10:45 Dose: 150 mls/hr Azithromycin 500 mg/ Sodium (Chloride) 250 mls @ 250 mls/hr IV Q24H [facility] Last Admin: 07/16/18 16:16 Dose: 250 mls/hr Sodium Chloride (Normal Saline) 1,000 mls @ 999 mls/hr IV ASDIRECTED [facility] Last Admin: 07/15/18 10:30 Dose: 999 mls/hr Ceftriaxone Sodium 1 gm/ (Sodium Chloride) 100 mls @ 400 mls/hr IV Q24H [facility] Last Admin: 07/16/18 14:36 Dose: 400 mls/hr Insulin Aspart (Novolog) 6 unit SUBCUT TIDMEALS [facility] Last Admin: 07/17/18 08:28 Dose: 6 units Insulin Detemir (Levemir) 17 unit SUBCUT WITHLUNCH [facility] Last Admin: 07/16/18 11:49 Dose: 17 units Ketorolac Tromethamine (Toradol) 30 mg IM Q6H PRN PRN Reason: Pain (moderate 4-6) Last Admin: 07/16/18 21:40 Dose: 30 mg Losartan Potassium (Cozaar) 100 mg PO DAILY [facility] Last Admin: 07/17/18 10:24 Dose: Not Given Melatonin (Melatonin) 6 mg PO BEDTIME [facility] Last Admin: 07/16/18 20:18 Dose: 6 mg Metoprolol Succinate (Toprol Xl) 100 mg PO WITHBREAKFAST [facility] Last Admin: 07/17/18 07:53 Dose: 100 mg Pravastatin Sodium (Pravachol) 40 mg PO BEDTIME [facility] Last Admin: 07/16/18 20:19 Dose: 40 mg Sodium Chloride (Saline Flush) 10 ml FLUSH ASDIRECTED PRN PRN Reason: Keep Vein Open Trolamine Salicylate (Aspercreme 10%) 1 gm TOP Q1H PRN PRN Reason: knee pain Last Admin: 07/16/18 12:30 Dose: 1 applic Warfarin Sodium (Coumadin) 2 mg PO SuTuThSa@1800 [facility] Last Admin: 07/16/18 17:17 Dose: 2 mg Warfarin Sodium (Coumadin) 1 mg PO MoWeFr@1800 [facility] Last Admin: 07/15/18 20:22 Dose: Not Given Discontinued Medications Furosemide (Lasix) 20 mg PO DAILY [facility] Last Admin: 07/16/18 07:30 Dose: 20 mg Ceftriaxone Sodium 1 gm/ (Sodium Chloride) 50 mls @ 200 mls/hr IV Q24H [facility] Last Admin: 07/15/18 20:10 Dose: 200 mls/hr Insulin Aspart (Novolog) 6 unit SUBCUT ASDIRECTED [facility] Last Admin: 07/15/18 18:19 Dose: 6 units Insulin Aspart (Novolog) 300 unit .ROUTE .STK-MED ONE Stop: 07/15/18 12:01 Insulin Detemir (Levemir) 17 unit SUBCUT ONETIME ONE Stop: 07/15/18 13:51 Last Admin: 07/16/18 03:08 Dose: Not Given Insulin Detemir (Levemir) 17 unit SUBCUT DAILY@1200 [facility] Last Admin: 07/15/18 13:00 Dose: 17 units Insulin Detemir (Levemir) 300 unit .ROUTE .STK-MED ONE Stop: 07/15/18 12:01 Losartan Potassium (Cozaar) 100 mg PO DAILY [facility] Last Admin: 07/16/18 07:33 Dose: 100 mg Metoprolol Succinate (Toprol Xl) 100 mg PO DAILY [facility] Last Admin: 07/16/18 07:30 Dose: 100 mg Non-Formulary Medication (Melatonin/Pyridoxine Hcl (B6) [Melatonin 5 Mg Tablet] ) 5 mg PO BEDTIME PRN PRN Reason: Sleep Ondansetron HCl (Zofran) 4 mg IV Q4H PRN PRN Reason: Nausea/Vomiting Stop: 07/15/18 23:59 Pravastatin Sodium (Pravachol) 40 mg PO DAILY [facility] Last Admin: 07/16/18 07:34 Dose: 40 mg Trolamine Salicylate (Aspercreme 10%) 85 gm .ROUTE .ST-MED ONE Stop: 07/15/18 12:01 Warfarin Sodium (Coumadin) 2 mg PO ASDIRECTED [facility] Warfarin Sodium (Coumadin) 1 mg PO ASDIRECTED [facility] - Exam General: Alert, Oriented, Cooperative HEENT: Pupils Equal, Pupils Reactive, EOMI Neck: Supple Lungs: Clear to Auscultation, Normal Respiratory Effort Cardiovascular: Regular Rate, Regular Rhythm GI/Abdominal Exam: Normal Bowel Sounds Extremities: Normal Inspection Skin: Warm, Dry, Intact Neurological: No New Focal Deficit - Problem List & Annotations (1) Generalized weakness SNOMED Code(s): 94144350 Code(s): R53.1 - WEAKNESS Status: Acute Priority: High Current Visit: Yes (2) Left knee pain SNOMED Code(s): 54860533 Code(s): M25.562 - PAIN IN LEFT KNEE Status: Acute Priority: High Current Visit: Yes Qualifiers: Chronicity: unspecified Qualified Code(s): M25.562 - Pain in left knee (3) Loss of appetite SNOMED Code(s): 27810861 Code(s): R63.0 - ANOREXIA Status: Acute Priority: High Current Visit: Yes (4) Pneumonia SNOMED Code(s): 332181517 Code(s): J18.9 - PNEUMONIA, UNSPECIFIED ORGANISM Status: Acute Priority: High Current Visit: Yes Qualifiers: Pneumonia type: due to unspecified organism Laterality: bilateral Lung location: lower lobe of lung Qualified Code(s): J18.1 - Lobar pneumonia, unspecified organism - Problem List Review Problem List Initiated/Reviewed/Updated: Yes - My Orders Last 24 Hours: My Active Orders 07/16/18 11:00 Insulin Detemir [Levemir] 17 unit SUBCUT WITHLUNCH 07/16/18 11:13 Ketorolac [Toradol] 30 mg IM Q6H PRN 07/16/18 11:38 Trolamine Salicylate/Aloe Vera [Aspercreme 10%] 1 gm TOP Q1H PRN 07/16/18 14:23 cefTRIAXone [Rocephin] 1 gm Sodium Chloride 0.9% [Normal Saline] 100 ml IV Q24H 07/16/18 18:00 Warfarin [Coumadin] 2 mg PO [facility]@1800 07/17/18 10:15 Code Status [Resuscitation Status] Routine 07/18/18 05:11 CBC WITH AUTO DIFF [HEME] AM COMPREHENSIVE METABOLIC PN,CMP [CHEM] AM - Plan Plan:: Patient counseled on PT/OT. Discussed oral Antibiotics therapy and management. Discussed continued f/u for labs in am. Discussed discharge planning tomorrow. No other changes today.
[2018-07-17] MEDS: Insulin Detemir 100 Units/ML 3 ML Pen SUBCUT SCH (12:28)
[2018-07-17] MEDS: Pravastatin 40 MG Tab PO SCH (19:58)
[2018-07-17] MEDS: Melatonin 3 MG Tab PO SCH (19:58)
[2018-07-17] MEDS: Acetaminophen 325 MG Tab PO PRN (20:00)
[2018-07-17] MEDS: Ketorolac 30 MG/ML SDV IM PRN (22:07)
[2018-07-18] MEDS ORDERED: Lidocaine 1% 10 ML MDV INJECT ONE (07:00)
[2018-07-18] MEDS ORDERED: Bupivacaine 0.5% 10 ML SDV INJECT ONE (07:00)
[2018-07-18] MEDS ORDERED: Triamcinolone Acetonide 40 MG/ML 1 ML MDV INJECT ONE ×2 (07:00→08:00)
[2018-07-18] MEDS: Losartan 50 MG Tab PO SCH (08:13)
[2018-07-18] MEDS: Furosemide 20 MG Tab PO SCH (08:13)
[2018-07-18] MEDS: Metoprolol Succinate 100 MG Tab.ER PO SCH (08:13)
[2018-07-18] MEDS: hydrALAZINE 25 MG Tab PO SCH (08:14)
[2018-07-18] MEDS: Insulin Aspart 100 Units/ML 3 ML Pen SUBCUT SCH (08:56)
--- NOTE | 2018-07-18 09:19 | PCM.DCSUM1 ---
Discharge Summary - Discharge Data Discharge Date: 07/18/18 Discharge Disposition: DC/Tfer W/I Hosp To Swing 61 Condition: Good - Discharge Diagnosis/Problem(s) (1) Generalized weakness SNOMED Code(s): 11442844 ICD Code: R53.1 - WEAKNESS Status: Acute Priority: High Current Visit: Yes (2) Left knee pain SNOMED Code(s): 12331186 ICD Code: M25.562 - PAIN IN LEFT KNEE Status: Acute Priority: High Current Visit: Yes Qualifiers: Qualified Code(s): M25.562 - Pain in left knee (3) Loss of appetite SNOMED Code(s): 38078276 ICD Code: R63.0 - ANOREXIA Status: Acute Priority: High Current Visit: Yes (4) Pneumonia SNOMED Code(s): 549267366 ICD Code: J18.9 - PNEUMONIA, UNSPECIFIED ORGANISM Status: Acute Priority : High Current Visit: Yes Qualifiers: Qualified Code(s): J18.1 - Lobar pneumonia, unspecified organism - Patient Summary/Data Consults: Consultations 07/15/18 11:55 OT Evaluation and Treatment [CONS] Routine Please Evaluate and Treat. OT Reason for Consult: ADL's This query below is only for informational purposes and is not editable. PT Evaluation and Treatment [CONS] Routine Please Evaluate and Treat. PT Reason for Consult: Ambulation This query below is only for informational purposes and is not editable. - Patient Instructions Diet: Usual Diet as Tolerated, Diabetic Diet Activity: As Tolerated Driving: Do Not Drive - Discharge Plan Home Medications: Home Meds Cefdinir [Omnicef] 300 mg PO BID 07/15/18 [History] Furosemide 20 mg PO WITHBREAKFAST 07/15/18 [History] Insulin Aspart [NovoLOG] 6 unit SQ ASDIRECTED 07/15/18 [History] Insulin Detemir [Levemir Flextouch] 17 unit SQ WITHLUNCH 07/15/18 [History] Losartan [Cozaar] 100 mg PO DAILY 07/15/18 [History] Melatonin/Pyridoxine HCl (B6) [Melatonin 5 mg Tablet] 5 mg PO BEDTIME PRN [History] Metoprolol Succinate [Toprol XL 100mg] 100 mg PO WITHBREAKFAST 07/15/18 [History ] Pravastatin [Pravachol] 40 mg PO DAILY 07/15/18 [History] Warfarin Sodium 1 mg ASDIRECTED 07/15/18 [History] Warfarin Sodium [Jantoven] 2 mg PO ASDIRECTED 07/15/18 [History] hydrALAZINE [Apresoline] 50 mg PO ASDIRECTED 07/15/18 [History] hydrALAZINE [Apresoline] 50 mg PO TIDMEALS 07/15/18 [History] Referrals: PCP,None [Ordering Only Provider] - - Discharge Summary/Plan Comment DC Time >30 min.: Yes Discharge Summary/Plan Comment: Patient present with daughter. Discussed discharge instructions and change to Swing bed for Physical therapy and rehabilitation for her weakness. Patient agrees with plan of care and rehabilitation. - General Info Date of Service: 07/18/18 Functional Status: Reports: Tolerating Diet, Ambulating - Review of Systems General: Reports: Weakness HEENT: Reports: No Symptoms Pulmonary: Reports: No Symptoms Cardiovascular: Reports: No Symptoms Gastrointestinal: Reports: No Symptoms Genitourinary: Reports: No Symptoms Musculoskeletal: Reports: No Symptoms Skin: Reports: No Symptoms Neurological: Reports: Difficulty Walking, Weakness Psychiatric: Reports: No Symptoms - Patient Data Vitals - Most Recent: Last Vital Signs Temp 36.6 C 07/18/18 06:29 Pulse 60 07/18/18 08:13 Resp 16 07/18/18 06:29 BP 139/62 07/18/18 08:14 Pulse Ox 100 07/18/18 06:29 Weight - Most Recent: 99.79 kg I&O - Last 24 hours: Intake & Output 07/17/18 07/18/18 07/18/18 22:59 06:59 14:59 Intake Total 600 200 Output Total 150 Balance 600 50 Lab Results - Last 24 hrs: Laboratory Results - last 24 hr 07/18/18 07/18/18 Range/Units 07:05 07:05 WBC 6.1 (4.0-11.0) K/uL RBC 3.63 L (3.80-5.80) M/uL Hgb 10.4 L (11.5-16.5) g/dL Hct 32.2 L (37.0-47.0) % MCV 89 (76-96) fL MCH 28.7 (27.0-32.0) pg MCHC 32.3 (31.0-35.0) g/dL RDW 12.9 (11.0-16.0) % Plt Count 248 (150-500) K/uL MPV 10.0 (6.0-10.0) fL Neut % (Auto) 48.1 (45.0-70.0) % Lymph % (Auto) 34.8 (20.0-40.0) % Bath % (Auto) 10.7 H (3.0-10.0) % Eos % (Auto) 5.9 H (1.0-5.0) % Baso % (Auto) 0.5 (0.0-0.5) % Neut # (Auto) 2.94 (2.00-7.50) K/uL Lymph # (Auto) 2.12 (1.50-4.00) K/uL Bath # (Auto) 0.65 (0.20-0.80) K/uL Eos # (Auto) 0.36 (0.04-0.40) K/uL Baso # (Auto) 0.03 (0.02-0.10) K/uL Sodium 141 (136-145) mmol/L Potassium 4.6 (3.5-5.1) mmol/L Chloride 107 (98-107) mmol/L Carbon Dioxide 26.1 (21.0-32.0) mmol/L Anion Gap 12.5 (5.0-15.0) mmol/L BUN 35 H D (8-26) mg/dL Creatinine 1.30 H (0.55-1.02) mg/dL Est Cr Clr Drug Dosing 31.26 mL/min Estimated GFR (MDRD) 39 L (>60) MLS/MIN BUN/Creatinine Ratio 26.9 H (6-25) Glucose 89 (74-100) mg/dL Calcium 7.7 L (8.5-10.1) mg/dL Total Bilirubin 0.4 (0.0-1.0) mg/dL AST 17 (15-37) U/L ALT 18 (12-78) U/L Alkaline Phosphatase 65 (46-116) U/L Total Protein 5.8 L (6.4-8.2) g/dL Albumin 2.0 L (3.4-5.0) g/dL Globulin 3.8 (2.2-4.2) g/dL Albumin/Globulin Ratio 0.5 L (0.8-2.0) NELIDA Results - Last 24 hrs: Microbiology 07/15/18 10:12 Aerobic Blood Culture - Preliminary Blood - Arm, Left NO GROWTH AFTER 2 DAYS Anaerobic Blood Culture - Preliminary NO GROWTH AFTER 2 DAYS 07/15/18 10:20 Aerobic Blood Culture - Preliminary Blood - Arm, Left NO GROWTH AFTER 2 DAYS Anaerobic Blood Culture - Preliminary NO GROWTH AFTER 2 DAYS Med Orders - Current: Current Medications Acetaminophen (Tylenol) 650 mg PO Q4H PRN PRN Reason: Pain (Mild 1-3)/fever Last Admin: 07/17/18 20:00 Dose: 650 mg Clindamycin HCl (Cleocin) 300 mg PO Q6H [facility] Last Admin: 07/18/18 08:12 Dose: 300 mg Furosemide (Lasix) 20 mg PO WITHBREAKFAST [facility] Last Admin: 07/18/18 08:13 Dose: 20 mg Hydralazine HCl (Apresoline) 50 mg PO TID [facility] Last Admin: 07/18/18 08:14 Dose: 50 mg Insulin Aspart (Novolog) 6 unit SUBCUT TIDMEALS [facility] Last Admin: 07/18/18 08:56 Dose: 6 units Insulin Detemir (Levemir) 17 unit SUBCUT WITHLUNCH [facility] Last Admin: 07/17/18 12:28 Dose: 17 units Ketorolac Tromethamine (Toradol) 30 mg IM Q6H PRN PRN Reason: Pain (moderate 4-6) Last Admin: 07/17/18 22:07 Dose: 30 mg Losartan Potassium (Cozaar) 100 mg PO DAILY [facility] Last Admin: 07/18/18 08:13 Dose: 100 mg Melatonin (Melatonin) 6 mg PO BEDTIME [facility] Last Admin: 07/17/18 19:58 Dose: 6 mg Metoprolol Succinate (Toprol Xl) 100 mg PO WITHBREAKFAST [facility] Last Admin: 07/18/18 08:13 Dose: 100 mg Pravastatin Sodium (Pravachol) 40 mg PO BEDTIME [facility] Last Admin: 07/17/18 19:58 Dose: 40 mg Trolamine Salicylate (Aspercreme 10%) 1 gm TOP Q1H PRN PRN Reason: knee pain Last Admin: 07/16/18 12:30 Dose: 1 applic Warfarin Sodium (Coumadin) 2 mg PO SuTuThSa@1800 [facility] Last Admin: 07/16/18 17:17 Dose: 2 mg Warfarin Sodium (Coumadin) 1 mg PO MoWeFr@1800 [facility] Last Admin: 07/15/18 20:22 Dose: Not Given Discontinued Medications Bupivacaine HCl (Sensorcaine-Mpf 0.5%) 10 ml INJECT ONETIME ONE Stop: 07/18/18 07:01 Furosemide (Lasix) 20 mg PO DAILY [facility] Last Admin: 07/16/18 07:30 Dose: 20 mg Sodium Chloride (Sodium Chloride 0.45%) 1,000 mls @ 150 mls/hr IV ASDIRECTED [facility] Last Admin: 07/15/18 10:45 Dose: 150 mls/hr Ceftriaxone Sodium 1 gm/ (Sodium Chloride) 50 mls @ 200 mls/hr IV Q24H [facility] Last Admin: 07/15/18 20:10 Dose: 200 mls/hr Azithromycin 500 mg/ Sodium (Chloride) 250 mls @ 250 mls/hr IV Q24H [facility] Last Admin: 07/16/18 16:16 Dose: 250 mls/hr Sodium Chloride (Normal Saline) 1,000 mls @ 999 mls/hr IV ASDIRECTED [facility] Last Admin: 07/15/18 10:30 Dose: 999 mls/hr Ceftriaxone Sodium 1 gm/ (Sodium Chloride) 100 mls @ 400 mls/hr IV Q24H [facility] Last Admin: 07/16/18 14:36 Dose: 400 mls/hr Insulin Aspart (Novolog) 6 unit SUBCUT ASDIRECTELY-[facility] Last Admin: 07/15/18 18:19 Dose: 6 units Insulin Aspart (Novolog) 300 unit .ROUTE .STK-MED ONE Stop: 07/15/18 12:01 Insulin Detemir (Levemir) 17 unit SUBCUT ONETIME ONE Stop: 07/15/18 13:51 Last Admin: 07/16/18 03:08 Dose: Not Given Insulin Detemir (Levemir) 17 unit SUBCUT DAILY@1200 [facility] Last Admin: 07/15/18 13:00 Dose: 17 units Insulin Detemir (Levemir) 300 unit .ROUTE .STK-MED ONE Stop: 07/15/18 12:01 Lidocaine HCl (Xylocaine 1%) 10 ml INJECT ONETIME ONE Stop: 07/18/18 07:01 Losartan Potassium (Cozaar) 100 mg PO DAILY [facility] Last Admin: 07/16/18 07:33 Dose: 100 mg Metoprolol Succinate (Toprol Xl) 100 mg PO DAILY [facility] Last Admin: 07/16/18 07:30 Dose: 100 mg Non-Formulary Medication (Melatonin/Pyridoxine Hcl (B6) [Melatonin 5 Mg Tablet] ) 5 mg PO BEDTIME PRN PRN Reason: Sleep Ondansetron HCl (Zofran) 4 mg IV Q4H PRN PRN Reason: Nausea/Vomiting Stop: 07/15/18 23:59 Pravastatin Sodium (Pravachol) 40 mg PO DAILY [facility] Last Admin: 07/16/18 07:34 Dose: 40 mg Sodium Chloride (Saline Flush) 10 ml FLUSH ASDIRECTED PRN PRN Reason: Keep Vein Open Triamcinolone Acetonide (Kenalog-40) 2 mg INJECT ONETIME ONE Stop: 07/18/18 08:01 Triamcinolone Acetonide (Kenalog-40) 80 mg INJECT ONETIME ONE Stop: 07/18/18 07:01 Trolamine Salicylate (Aspercreme 10%) 85 gm .ROUTE .STK-MED ONE Stop: 07/15/18 12:01 Warfarin Sodium (Coumadin) 2 mg PO ASDIRECTED [facility] Warfarin Sodium (Coumadin) 1 mg PO ASDIRECTED [facility] - Exam General: Reports: Alert, Oriented, Cooperative HEENT: Reports: Pupils Equal, Pupils Reactive, EOMI Neck: Reports: Supple Lungs: Reports: Clear to Auscultation, Normal Respiratory Effort Cardiovascular: Reports: Regular Rate, Regular Rhythm GI/Abdominal Exam: Normal Bowel Sounds Back Exam: Reports: Normal Inspection Extremities: Normal Inspection Skin: Reports: Warm, Dry, Intact Neurological: Reports: No New Focal Deficit Psy/Mental Status: Reports: Alert, Normal Affect, Normal Mood Discharge Operative/Procedures - Procedures Performed Operations: Left knee injection CL Indication: other (left knee pain and tenderness - hx of multiple injections) Operations/Procedure Comment: Left knee prepped sterilely and 2mL kenalog (40mg/mL)-2mL marcaine 0.5%-2mL lidocaine 1% injection laterally with a 22 ga needle done with no complications.
== END 2018-07-18 11:30 | disposition swing bed (61) | DRG 195 ==
LOC: LB.ED 09:19 → LB.MS 11:55
PROVIDERS: ADMIT Family Medicine; ATTEND Family Medicine
PROC: 3E0U33Z Introduction of Anti-inflammatory into Joints, Percutaneous Approach (ICD-10-PCS; principal; 2018-07-18)
PROC: 3E0U3BZ Introduction of Anesthetic Agent into Joints, Percutaneous Approach (ICD-10-PCS; 2018-07-18)
DX: J18.1 Lobar pneumonia, unspecified organism (principal); M25.562 Pain in left knee; R53.1 Weakness; R63.0 Anorexia; Z79.01 Long term (current) use of anticoagulants; Z79.84 Long term (current) use of oral hypoglycemic drugs; Z88.1 Allergy status to other antibiotic agents; Z88.5 Allergy status to narcotic agent; Z88.0 Allergy status to penicillin; Z88.2 Allergy status to sulfonamides; Z88.8 Allergy status to other drugs, medicaments and biological substances; Z91.048 Other nonmedicinal substance allergy status
CPT/HCPCS: 36415; 71045; 80053; 83036; 83880; 84443; 84484; 85025; 85610; 87040 ×2; 93005; 96360; 99285; J3490; J7030; 82962; 97110-GO; 97110-GP; 97161-GP; 97165-GO; 97530-GO; 97530-GP; A9270-GY; J0456; J0696; J1815-GY; J1885; J2001; J3301; J7050

== ENCOUNTER 2018-07-18 09:30 | Inpatient (IN) | payer MEDICARE, BC ==
[~2018-07-18 09:30] MED LIST: Tuberculin, PPD 5 Units/0.1 ML 1 ML MDV IDERM ONE
--- NOTE | 2018-07-18 09:30 | PCM.HP ---
H&P History of Present Illness - General Date of Service: 07/18/18 Source of Information: Patient, Family History Limitations: Reports: No Limitations - History of Present Illness Initial Comments - Free Text/Narative: This is a pleasant 87yo F with recently inpatient stay for pneumonia admitted to swing bed for weakness and PT/OT rehabilitation. Patient denies any health concerns at this time but does continue to have some left knee pain and weakness. Onset of Symptoms: Reports: Gradual Duration of Symptoms: Reports: Day(s): Location: Reports: Generalized Severity: Moderate Improves with: Reports: None Worsens with: Reports: Movement Context: Reports: Activity/Exercise Associated Symptoms: Reports: Weakness - Related Data Allergies/Adverse Reactions: Allergies Allergy/AdvReac Type Severity Reaction Status Date / Time adhesive tape Allergy Rash Verified 07/15/18 11:04 cefaclor Allergy Rash Verified 05/21/18 16:47 diltiazem [From Cardizem] Allergy Rash Verified 05/21/18 16:51 hydrochlorothiazide Allergy Rash Verified 05/21/18 16:51 indapamide Allergy Rash Verified 05/21/18 16:51 lisinopril Allergy Rash Verified 05/21/18 16:51 metoclopramide [From Reglan] Allergy Rash Verified 05/21/18 16:51 morphine Allergy Itching Verified 05/21/18 16:47 moxifloxacin [From Avelox] Allergy Rash Verified 05/21/18 16:51 nitrofurantoin Allergy Rash Verified 05/21/18 16:51 Penicillins Allergy Rash Verified 05/21/18 16:47 sertraline [From Zoloft] Allergy Rash Verified 05/21/18 16:51 Sulfa (Sulfonamide Allergy Rash Verified 05/21/18 16:47 Antibiotics) tetrahydrozoline Allergy Rash Verified 05/21/18 16:51 Home Medications: Home Meds Cefdinir [Omnicef] 300 mg PO BID 07/15/18 [History] Furosemide 20 mg PO WITHBREAKFAST 07/15/18 [History] Insulin Aspart [NovoLOG] 6 unit SQ ASDIRECTED 07/15/18 [History] Insulin Detemir [Levemir Flextouch] 17 unit SQ WITHLUNCH 07/15/18 [History] Losartan [Cozaar] 100 mg PO DAILY 07/15/18 [History] Melatonin/Pyridoxine HCl (B6) [Melatonin 5 mg Tablet] 5 mg PO BEDTIME PRN [History] Metoprolol Succinate [Toprol XL 100mg] 100 mg PO WITHBREAKFAST 07/15/18 [History ] Pravastatin [Pravachol] 40 mg PO DAILY 07/15/18 [History] Warfarin Sodium 1 mg ASDIRECTED 07/15/18 [History] Warfarin Sodium [Jantoven] 2 mg PO ASDIRECTED 07/15/18 [History] hydrALAZINE [Apresoline] 50 mg PO ASDIRECTED 07/15/18 [History] hydrALAZINE [Apresoline] 50 mg PO TIDMEALS 07/15/18 [History] Past Medical History HEENT History: Reports: Cataract, Hard of Hearing, Macular Degeneration, Other ( See Below) Other HEENT History: eye lid surgery, pt has hearing aides Cardiovascular History: Reports: Afib, Pacemaker, Other (See Below) Other Cardiovascular History: pacemaker 2017 [place] 1988, rheumatic fever 1949 not hospitalized Gastrointestinal History: Reports: Hepatitis, Jaundice, Other (See Below) Other Gastrointestinal History: gallbladder 188, jaundice 194 Genitourinary History: Reports: Other (See Below) Other Genitourinary History: bladder repair 2008 sling procedure [employer] History: Reports: Other (See Below) Other OB/BYN History: D and C 1964 Musculoskeletal History: Reports: Other (See Below) Other Musculoskeletal History: back spasms hip replacement 2002, hip replacement 2001 leg [id number], left hip 1995, right hip 1994 Endocrine/Metabolic History: Reports: Diabetes, Type II Other Endocrine/Metabolic History: 1980 dx with diabetes - Past Surgical History HEENT Surgical History: Reports: Cataract Surgery Female Surgical History: Reports: Other (See Below) Other Female Surgeries/Procedures: lymph node biopsy 1981 Other Musculoskeletal Surgeries/Procedures:: hip arthritis 1960 Social & Family History - Family History Family Medical History: Noncontributory - Caffeine Use Caffeine Use: Reports: None H&P Review of Systems - Review of Systems: Review Of Systems: ROS reveals no pertinent complaints other than HPI. Exam - Exam Exam: See Below - Exam General: Alert, Oriented, Cooperative HEENT: PERRLA, Conjunctiva Clear, EACs Clear, EOMI Neck: Supple, Trachea Midline Lungs: Clear to Auscultation, Normal Respiratory Effort Cardiovascular: Regular Rate, Regular Rhythm GI/Abdominal Exam: Normal Bowel Sounds, Soft, Non-Tender Back Exam: Normal Inspection Extremities: Normal Inspection, Normal Range of Motion Peripheral Pulses: 2+: Dorsalis Pedis (L), Dorsalis Pedis (R) Skin: Warm, Dry, Intact Neurological: Cranial Nerves Intact, Reflexes Equal Bilateral Problem List Initiated/Reviewed/Updated: Yes Assessment/Plan Comment:: Patient to be admitted to swing bed for strengthening and rehabilitation. She will continue course of clindamycin for a total of 7 days. No other medication changes. PT/INR to be monitored.
[2018-07-18] MEDS ORDERED: Non-Formulary Medication 1 Each (Hydralazine [Apresoline] 50 MG) PO SCH ×2 (10:00→12:00)
[2018-07-18] MEDS ORDERED: [UNRECOGNIZED DRUG - OTHER] PO PRN (10:00)
[2018-07-18] MEDS ORDERED: Insulin Aspart 100 Units/ML 3 ML Pen SUBCUT SCH (10:00)
[2018-07-18] MEDS ORDERED: MELATONIN PO PRN (10:00)
[2018-07-18] MEDS ORDERED: Trolamine Salicylate/Aloe Vera 10% Crm 85 GM Tube TOP PRN (10:00)
[2018-07-18] MEDS ORDERED: PYRIDOXINE HCL PO PRN (10:00)
[2018-07-18] MEDS: Insulin Aspart 100 Units/ML 3 ML Pen SUBCUT SCH ×2 (12:10→17:27)
[2018-07-18] MEDS: Insulin Detemir 100 Units/ML 3 ML Pen SUBCUT SCH (12:24)
[2018-07-18] MEDS: hydrALAZINE 25 MG Tab PO SCH ×2 (14:19→17:39)
[2018-07-18] MEDS: Pravastatin 40 MG Tab PO SCH (20:12)
[2018-07-18] MEDS: Acetaminophen 325 MG Tab PO PRN (20:12)
[2018-07-18] MEDS: Melatonin 3 MG Tab PO SCH (20:12)
[2018-07-19] MEDS ORDERED: Furosemide 20 MG Tab PO SCH (07:00)
[2018-07-19] MEDS ORDERED: Metoprolol Succinate 100 MG Tab.ER PO SCH (07:00)
[2018-07-19] MEDS ORDERED: Non-Formulary Medication 1 Each (Losartan [Cozaar] 100 MG) PO SCH (08:00)
[2018-07-19] MEDS: Losartan 50 MG Tab PO SCH (08:07)
[2018-07-19] MEDS: Metoprolol Succinate 100 MG Tab.ER PO SCH (08:07)
[2018-07-19] MEDS: Furosemide 20 MG Tab PO SCH (08:07)
[2018-07-19] MEDS: Insulin Aspart 100 Units/ML 3 ML Pen SUBCUT SCH ×3 (08:08→17:27)
[2018-07-19] MEDS: hydrALAZINE 25 MG Tab PO SCH ×3 (08:25→18:19)
[2018-07-19] MEDS: Acetaminophen 325 MG Tab PO PRN (11:47)
[2018-07-19] MEDS: Insulin Detemir 100 Units/ML 3 ML Pen SUBCUT SCH (11:48)
[2018-07-19] MEDS: Lactobacillus Acidophilus/Lactobacillus Sporogenes (Probiotic) Tab PO SCH (11:48)
[2018-07-19] MEDS ORDERED: Insulin Aspart 100 Units/ML 3 ML Pen SUBCUT ONE (17:25)
[2018-07-19] MEDS: Melatonin 3 MG Tab PO SCH (20:11)
[2018-07-19] MEDS: Pravastatin 40 MG Tab PO SCH (20:11)
[2018-07-20] MEDS: Insulin Aspart 100 Units/ML 3 ML Pen SUBCUT SCH ×3 (08:07→18:04)
[2018-07-20] MEDS: hydrALAZINE 25 MG Tab PO SCH ×3 (08:09→18:09)
[2018-07-20] MEDS: Lactobacillus Acidophilus/Lactobacillus Sporogenes (Probiotic) Tab PO SCH (08:09)
[2018-07-20] MEDS: Furosemide 20 MG Tab PO SCH (08:10)
[2018-07-20] MEDS: Metoprolol Succinate 100 MG Tab.ER PO SCH (08:10)
[2018-07-20] MEDS: Losartan 50 MG Tab PO SCH (08:10)
[2018-07-20] MEDS: Insulin Detemir 100 Units/ML 3 ML Pen SUBCUT SCH (11:49)
[2018-07-20] MEDS ORDERED: diphenhydrAMINE 25 MG Cap ONE (17:55)
[2018-07-20] MEDS: Warfarin 2 MG Tab PO SCH (18:01)
[2018-07-20] MEDS: diphenhydrAMINE 25 MG Cap PO PRN (18:44)
[2018-07-20] MEDS: Pravastatin 40 MG Tab PO SCH (19:39)
[2018-07-20] MEDS: Melatonin 3 MG Tab PO SCH (19:39)
[2018-07-21] MEDS: Furosemide 20 MG Tab PO SCH (08:34)
[2018-07-21] MEDS: Lactobacillus Acidophilus/Lactobacillus Sporogenes (Probiotic) Tab PO SCH (08:34)
[2018-07-21] MEDS: Acetaminophen 325 MG Tab PO PRN (08:34)
[2018-07-21] MEDS: hydrALAZINE 25 MG Tab PO SCH ×3 (08:35→18:18)
[2018-07-21] MEDS: Metoprolol Succinate 100 MG Tab.ER PO SCH (08:36)
[2018-07-21] MEDS: Losartan 50 MG Tab PO SCH (08:36)
[2018-07-21] MEDS: Insulin Aspart 100 Units/ML 3 ML Pen SUBCUT SCH ×3 (08:37→18:19)
[2018-07-21] MEDS: Insulin Detemir 100 Units/ML 3 ML Pen SUBCUT SCH (11:58)
[2018-07-21] MEDS: Warfarin 2 MG Tab PO SCH (18:19)
[2018-07-21] MEDS: Pravastatin 40 MG Tab PO SCH (20:15)
[2018-07-21] MEDS: Melatonin 3 MG Tab PO SCH (20:15)
[2018-07-22] MEDS: Furosemide 20 MG Tab PO SCH (07:51)
[2018-07-22] MEDS: Lactobacillus Acidophilus/Lactobacillus Sporogenes (Probiotic) Tab PO SCH (07:52)
[2018-07-22] MEDS: hydrALAZINE 25 MG Tab PO SCH ×3 (08:03→18:40)
[2018-07-22] MEDS: Metoprolol Succinate 100 MG Tab.ER PO SCH (08:04)
[2018-07-22] MEDS: Losartan 50 MG Tab PO SCH (08:04)
[2018-07-22] MEDS: Insulin Aspart 100 Units/ML 3 ML Pen SUBCUT SCH ×3 (08:05→17:31)
[2018-07-22] MEDS: Insulin Detemir 100 Units/ML 3 ML Pen SUBCUT SCH (12:00)
[2018-07-22] MEDS: Acetaminophen 325 MG Tab PO PRN ×2 (15:17→15:20)
[2018-07-22] MEDS: Melatonin 3 MG Tab PO SCH (20:25)
[2018-07-22] MEDS: Pravastatin 40 MG Tab PO SCH (20:25)
[2018-07-23] MEDS: Acetaminophen 325 MG Tab PO PRN (00:13)
[2018-07-23] MEDS: diphenhydrAMINE 25 MG Cap PO PRN (00:13)
[2018-07-23] MEDS: Lactobacillus Acidophilus/Lactobacillus Sporogenes (Probiotic) Tab PO SCH (08:26)
[2018-07-23] MEDS: Metoprolol Succinate 100 MG Tab.ER PO SCH (08:26)
[2018-07-23] MEDS: Furosemide 20 MG Tab PO SCH (08:26)
[2018-07-23] MEDS: hydrALAZINE 25 MG Tab PO SCH ×3 (08:26→17:57)
[2018-07-23] MEDS: Losartan 50 MG Tab PO SCH (08:27)
[2018-07-23] MEDS: Insulin Aspart 100 Units/ML 3 ML Pen SUBCUT SCH ×3 (08:28→17:22)
[2018-07-23] MEDS: Insulin Detemir 100 Units/ML 3 ML Pen SUBCUT SCH (12:17)
--- NOTE | 2018-07-23 17:45 | PCM.PN ---
- General Info Date of Service: 07/23/18 Functional Status: Reports: Pain Controlled - Review of Systems General: Reports: No Symptoms HEENT: Reports: No Symptoms Pulmonary: Reports: No Symptoms Cardiovascular: Reports: No Symptoms Gastrointestinal: Reports: No Symptoms Musculoskeletal: Reports: No Symptoms Skin: Reports: No Symptoms Neurological: Reports: No Symptoms - Patient Data Vitals - Most Recent: Last Vital Signs Temp 36.9 C 07/23/18 08:00 Pulse 64 07/23/18 08:26 Resp 18 07/23/18 08:00 BP 133/45 L 07/23/18 12:14 Pulse Ox 99 07/23/18 08:00 Weight - Most Recent: 100.754 kg Lab Results Last 24 Hours: Laboratory Results - last 24 hr 07/23/18 07/23/18 07/23/18 Range/Units 08:21 11:32 16:09 POC Glucose 253 H 325 H 314 H (74-110) mg/dL Med Orders - Current: Current Medications Acetaminophen (Tylenol) 650 mg PO Q4H PRN PRN Reason: Pain (Mild 1-3)/fever Last Admin: 07/23/18 00:13 Dose: 650 mg Clindamycin HCl (Cleocin) 300 mg PO Q6H [facility] Stop: 07/24/18 12:01 Last Admin: 07/23/18 12:14 Dose: 300 mg Diphenhydramine HCl (Benadryl) 25 mg PO Q6H PRN PRN Reason: Itching Last Admin: 07/23/18 00:13 Dose: 25 mg Furosemide (Lasix) 20 mg PO DAILY [facility] Last Admin: 07/23/18 08:26 Dose: 20 mg Hydralazine HCl (Apresoline) 50 mg PO TIDMEALS [facility] Last Admin: 07/23/18 12:14 Dose: 50 mg Insulin Aspart (Novolog) 6 unit SUBCUT TIDMEALS [facility] Last Admin: 07/23/18 17:22 Dose: 6 unit Insulin Detemir (Levemir) 17 unit SUBCUT WITHLUNCH [facility] Last Admin: 07/23/18 12:17 Dose: 17 unit Lactobacillus Acidophilus (Acidolphilus Extra Strength) 1 tab PO DAILY [facility] Last Admin: 07/23/18 08:26 Dose: 1 tab Losartan Potassium (Cozaar) 100 mg PO DAILY [facility] Last Admin: 07/23/18 08:27 Dose: 100 mg Melatonin (Melatonin) 6 mg PO BEDTIME [facility] Last Admin: 07/22/18 20:25 Dose: 6 mg Metoprolol Succinate (Toprol Xl) 100 mg PO DAILY [facility] Last Admin: 07/23/18 08:26 Dose: 100 mg Pravastatin Sodium (Pravachol) 40 mg PO BEDTIME [facility] Last Admin: 07/22/18 20:25 Dose: 40 mg Trolamine Salicylate (Aspercreme 10%) 1 gm TOP Q1H PRN PRN Reason: knee pain Warfarin Sodium (Coumadin) 2 mg PO SuTuThSa@1800 [facility] Last Admin: 07/21/18 18:19 Dose: 2 mg Warfarin Sodium (Coumadin) 1 mg PO MoWeFr@1800 [facility] Last Admin: 07/22/18 18:38 Dose: 1 mg Discontinued Medications Clindamycin HCl (Cleocin) 300 mg PO Q6H [facility] Stop: 07/24/18 17:00 Last Admin: 07/18/18 18:05 Dose: Not Given Diphenhydramine HCl (Benadryl) Confirm Administered Dose 25 mg .ROUTE .STK-MED ONE Stop: 07/20/18 17:56 Last Admin: 07/20/18 18:44 Dose: Not Given Furosemide (Lasix) 20 mg PO WITHBREAKFAST [facility] Insulin Aspart (Novolog) 6 unit SUBCUT ASDIRECTED [facility] Insulin Aspart (Novolog) 10 unit SUBCUT ONETIME ONE Stop: 07/19/18 17:26 Last Admin: 07/19/18 18:00 Dose: Not Given Metoprolol Succinate (Toprol Xl) 100 mg PO WITHBREAKFAST [facility] Tuberculin PPD (Aplisol) 5 unit IDERM ONETIME ONE Stop: 07/18/18 09:31 Last Admin: 07/18/18 20:55 Dose: 5 unit Warfarin Sodium (Coumadin) 1 mg PO MoWeFr@1800 [facility] - Exam Quality Assessment: No: Supplemental Oxygen, Skin Breakdown General: Alert, Oriented, Cooperative, No Acute Distress HEENT: Pupils Equal, Pupils Reactive, EOMI, Mucous Membr. Moist/[place] Neck: Supple, Trachea Midline Lungs: Clear to Auscultation, Normal Respiratory Effort Cardiovascular: Regular Rate, Regular Rhythm GI/Abdominal Exam: Normal Bowel Sounds, Soft, Non-Tender, No Organomegaly, No Distention Skin: Warm, Dry, Intact Neurological: No New Focal Deficit - Problem List Review Problem List Initiated/Reviewed/Updated: Yes - My Orders Last 24 Hours: My Active Orders 07/24/18 07:00 GLYCOSYLATED HEMOGLOBIN,HGBA1C [CHEM] Routine - Assessment Assessment:: Pain well controlled with current medications. Continues to be hyperglycemia with blood sugars consistently greater than 200. Continues to participate with OT and PT. - Plan Plan:: Patient to be admitted to swing bed for strengthening and rehabilitation. She will continue course of clindamycin for a total of 7 days. No other medication changes. PT/INR to be monitored. 07/23/18 Continues to build strength with increased OT and PT. Continues with same medications. Plan is for discharge to home on July 27.
[2018-07-23] MEDS: Warfarin 2 MG Tab PO SCH (17:57)
[2018-07-23] MEDS: Pravastatin 40 MG Tab PO SCH (20:17)
[2018-07-23] MEDS: Melatonin 3 MG Tab PO SCH (20:17)
[2018-07-24] MEDS: diphenhydrAMINE 25 MG Cap PO PRN (00:01)
[2018-07-24 07:42] LABS: HEMOGLOBIN A1C 7.3 % (4.5-6.2)
[2018-07-24] MEDS: hydrALAZINE 25 MG Tab PO SCH ×4 (07:54→18:20)
[2018-07-24] MEDS: Losartan 50 MG Tab PO SCH (07:54)
[2018-07-24] MEDS: Furosemide 20 MG Tab PO SCH (07:55)
[2018-07-24] MEDS: Metoprolol Succinate 100 MG Tab.ER PO SCH (07:55)
[2018-07-24] MEDS: Lactobacillus Acidophilus/Lactobacillus Sporogenes (Probiotic) Tab PO SCH (07:55)
[2018-07-24] MEDS ORDERED: PSYLLIUM PO SCH (08:00)
[2018-07-24] MEDS: Insulin Aspart 100 Units/ML 3 ML Pen SUBCUT SCH ×3 (08:01→17:14)
[2018-07-24] MEDS: Insulin Glargine,Human Rec. Analog 100 Units/ML 3 ML Pen SUBCUT SCH (12:03)
[2018-07-24] MEDS: Insulin Detemir 100 Units/ML 3 ML Pen SUBCUT SCH (12:19)
[2018-07-24] MEDS: Pravastatin 40 MG Tab PO SCH (19:48)
[2018-07-24] MEDS: Melatonin 3 MG Tab PO SCH (19:48)
[2018-07-24] MEDS: Acetaminophen 325 MG Tab PO PRN (19:54)
[2018-07-25] MEDS ORDERED: Fluconazole 150 MG Tab ONE (07:56)
[2018-07-25] MEDS ORDERED: Non-Formulary Medication 1 Each PO ONE (08:00)
[2018-07-25] MEDS ORDERED: Fluconazole 150 MG Tab PO ONE (08:04)
[2018-07-25] MEDS: hydrALAZINE 25 MG Tab PO SCH ×3 (08:05→17:04)
[2018-07-25] MEDS: Losartan 50 MG Tab PO SCH (08:05)
[2018-07-25] MEDS: Furosemide 20 MG Tab PO SCH (08:06)
[2018-07-25] MEDS: Metoprolol Succinate 100 MG Tab.ER PO SCH (08:06)
[2018-07-25] MEDS: Lactobacillus Acidophilus/Lactobacillus Sporogenes (Probiotic) Tab PO SCH (08:06)
[2018-07-25] MEDS: Psyllium Husk Powder Sugar Free 5.85 GM Packet PO SCH (08:07)
[2018-07-25] MEDS: Insulin Aspart 100 Units/ML 3 ML Pen SUBCUT SCH ×3 (08:19→17:33)
[2018-07-25] MEDS: Acetaminophen 325 MG Tab PO PRN ×2 (11:40→16:30)
[2018-07-25] MEDS: Insulin Glargine,Human Rec. Analog 100 Units/ML 3 ML Pen SUBCUT SCH (12:04)
[2018-07-25] MEDS: Warfarin 2 MG Tab PO SCH (17:04)
[2018-07-25] MEDS: Pravastatin 40 MG Tab PO SCH (19:39)
[2018-07-25] MEDS: Melatonin 3 MG Tab PO SCH (19:39)
[2018-07-26] MEDS: Furosemide 20 MG Tab PO SCH (08:05)
[2018-07-26] MEDS: Metoprolol Succinate 100 MG Tab.ER PO SCH (08:05)
[2018-07-26] MEDS: Psyllium Husk Powder Sugar Free 5.85 GM Packet PO SCH (08:06)
[2018-07-26] MEDS: hydrALAZINE 25 MG Tab PO SCH ×3 (08:06→17:17)
[2018-07-26] MEDS: Losartan 50 MG Tab PO SCH (08:06)
[2018-07-26] MEDS: Lactobacillus Acidophilus/Lactobacillus Sporogenes (Probiotic) Tab PO SCH (08:06)
[2018-07-26] MEDS: Insulin Aspart 100 Units/ML 3 ML Pen SUBCUT SCH ×3 (08:14→17:07)
[2018-07-26] MEDS: Insulin Glargine,Human Rec. Analog 100 Units/ML 3 ML Pen SUBCUT SCH (11:51)
[2018-07-26] MEDS: Pravastatin 40 MG Tab PO SCH (20:00)
[2018-07-26] MEDS: Melatonin 3 MG Tab PO SCH (20:00)
[2018-07-27] MEDS: Acetaminophen 325 MG Tab PO PRN (04:48)
[2018-07-27] MEDS: Lactobacillus Acidophilus/Lactobacillus Sporogenes (Probiotic) Tab PO SCH (07:41)
[2018-07-27] MEDS: hydrALAZINE 25 MG Tab PO SCH (07:41)
[2018-07-27] MEDS: Losartan 50 MG Tab PO SCH (07:42)
[2018-07-27] MEDS: Metoprolol Succinate 100 MG Tab.ER PO SCH (07:42)
[2018-07-27] MEDS: Furosemide 20 MG Tab PO SCH (07:42)
[2018-07-27 07:43] VITALS: BP 137/62
[2018-07-27] MEDS: Psyllium Husk Powder Sugar Free 5.85 GM Packet PO SCH (07:43)
[2018-07-27] MEDS: Insulin Aspart 100 Units/ML 3 ML Pen SUBCUT SCH (07:58)
--- NOTE | 2018-07-28 10:16 | DISCH ---
The patient is an 88-year-old female who presented about a week or so ago with pneumonia. The patient has a significant allergy list and it was treated with clindamycin. She did well with this. However, she took a while to recover at 87 and so was transferred to swing bed for some PT/OT. She notes she is doing quite well. She is ambulating with a walker. She lives at home with her daughter and son-in-law, and so she does have help at home. The patient is feeling much better. She was discharged home in good condition on her usual medications of Acidophilus 1 tab p.o. daily, Cozaar 100 mg 1 p.o. daily, Lasix 20 mg 1 p.o. daily, Toprol-XL 100 mg 1 p.o. daily, Metamucil 1 p.o. daily, hydralazine 50 mg 1 p.o. t.i.d., NovoLog 6 units 1 p.o. with meals or 60 units injected with meals, Levemir or Lantus 17 units at noon, Coumadin 2 mg and 1 mg for a total of 3, melatonin 6 mg at bedtime and Pravachol 40 mg at bedtime. The patient is to follow up with her usual provider in a couple of weeks. NANDO/CHRISTI /[id number]
== END 2018-07-27 10:00 | disposition home or self-care (01) | DRG 947 ==
LOC: LB.MS 09:30
PROVIDERS: ADMIT Family Medicine; ATTEND Family Medicine
DX: R53.1 Weakness (principal); J18.9 Pneumonia, unspecified organism; E11.65 Type 2 diabetes mellitus with hyperglycemia; M25.562 Pain in left knee; H91.90 Unspecified hearing loss, unspecified ear; H35.30 Unspecified macular degeneration; I48.91 Unspecified atrial fibrillation; I25.2 Old myocardial infarction; Z66 Do not resuscitate; Z79.01 Long term (current) use of anticoagulants; Z79.4 Long term (current) use of insulin; Z88.1 Allergy status to other antibiotic agents; Z88.5 Allergy status to narcotic agent; Z96.643 Presence of artificial hip joint, bilateral; Z88.0 Allergy status to penicillin; Z88.2 Allergy status to sulfonamides; Z88.8 Allergy status to other drugs, medicaments and biological substances; Z95.0 Presence of cardiac pacemaker; Z79.899 Other long term (current) drug therapy
CPT/HCPCS: 36415; 82962; 83036; 85610; 86580; 97110-GO; 97110-GP; 97530-GO; 97530-GP; 97535-GO; A9270-GY

== ENCOUNTER → 2019-02-13 | Outpatient (CLI) | payer MEDICARE, BC | LOC: LB.CLINIC 13:59 | PROVIDERS: ATTEND Nurse Practitioner Family | DX: I48.91 Unspecified atrial fibrillation (principal); Z79.01 Long term (current) use of anticoagulants | CPT/HCPCS: 85610 ==

== ENCOUNTER 2019-02-20 22:45 | Emergency (ER) | payer MEDICARE, BC ==
--- NOTE | 2019-02-20 23:21 | EDM.PDOC ---
ED HPI GENERAL MEDICAL PROBLEM - General Chief Complaint: General Stated Complaint: R SHOULDER INJURY Time Seen by Provider: 02/20/19 23:15 Source of Information: Reports: Patient, Family, RN History Limitations: Reports: No Limitations - History of Present Illness INITIAL COMMENTS - FREE TEXT/NARRATIVE: 88 yo female presents vis ambulance to ER after a fall in the home onto right shoulder, fell onto the floor and didn't hit anything, no LOC. She is alert and talkative and no acute distress. Family is here signing paperwork. States right shoulder pain. Right Shoulder Pain Score (Numeric/FACES): 10 - Related Data Allergies Allergy/AdvReac Type Severity Reaction Status Date / Time adhesive tape Allergy Rash Verified 02/21/19 01:03 cefaclor Allergy Rash Verified 02/21/19 01:03 diltiazem [From Cardizem] Allergy Rash Verified 02/21/19 01:03 hydrochlorothiazide Allergy Rash Verified 02/21/19 01:03 indapamide Allergy Rash Verified 02/21/19 01:03 lisinopril Allergy Rash Verified 02/21/19 01:03 metoclopramide [From Reglan] Allergy Rash Verified 02/21/19 01:03 morphine Allergy Itching Verified 02/21/19 01:03 moxifloxacin [From Avelox] Allergy Rash Verified 02/21/19 01:03 nitrofurantoin Allergy Rash Verified 02/21/19 01:03 Penicillins Allergy Rash Verified 02/21/19 01:03 sertraline [From Zoloft] Allergy Rash Verified 02/21/19 01:03 Sulfa (Sulfonamide Allergy Rash Verified 02/21/19 01:03 Antibiotics) tetrahydrozoline Allergy Rash Verified 02/21/19 01:03 Home Meds: Home Meds Furosemide 20 mg PO WITHBREAKFAST 07/15/18 [History] Insulin Aspart [NovoLOG] 6 unit SQ TIDMEALS 07/15/18 [History] Insulin Detemir [Levemir Flextouch] 17 unit SQ WITHLUNCH 07/15/18 [History] Losartan [Cozaar] 100 mg PO DAILY 07/15/18 [History] Metoprolol Succinate [Toprol XL 100mg] 100 mg PO WITHBREAKFAST 07/15/18 [History ] hydrALAZINE [Apresoline] 50 mg PO TIDMEALS 07/15/18 [History] Acetaminophen [Tylenol] 650 mg PO Q4H PRN tablet 07/18/18 [Rx] Clindamycin HCl [Cleocin] 300 mg PO Q6H cap 07/18/18 [Rx] Melatonin 6 mg PO BEDTIME tablet 07/18/18 [Rx] Pravastatin [Pravachol] 40 mg PO BEDTIME tablet 07/18/18 [Rx] Trolamine Salicylate/Aloe Vera [Aspercreme 10%] 1 gm TOP Q1H PRN tube 07/18/18 [Rx] Warfarin [Coumadin] 1 mg PO [id number]@1800 tablet 07/18/18 [Rx] Warfarin [Coumadin] 2 mg PO [id number]@1800 tablet 07/18/18 [Rx] Past Medical History HEENT History: Reports: Cataract, Hard of Hearing, Macular Degeneration, Other ( See Below) Other HEENT History: eye lid surgery, pt has hearing aides Cardiovascular History: Reports: Afib, Heart Failure, Pacemaker, Other (See Below) Other Cardiovascular History: pacemaker 2017 [place] 1988, rheumatic fever 1950 not hospitalized Gastrointestinal History: Reports: Hepatitis, Jaundice, Other (See Below) Other Gastrointestinal History: gallbladder 188, jaundice 194 Genitourinary History: Reports: Urinary Incontinence, Other (See Below) Other Genitourinary History: bladder repair 2008 sling procedure PHONE SPECIALIST History: Reports: Other (See Below) Other PHONE SPECIALIST History: D and C 1964 Musculoskeletal History: Reports: Other (See Below) Other Musculoskeletal History: back spasms hip replacement 2002, hip replacement 2001 leg [id number], left hip 1995, right hip 1994 Endocrine/Metabolic History: Reports: Diabetes, Type II Other Endocrine/Metabolic History: 1980 dx with diabetes - Past Surgical History HEENT Surgical History: Reports: Cataract Surgery Female Surgical History: Reports: Other (See Below) Other Female Surgeries/Procedures: lymph node biopsy 1981 Other Musculoskeletal Surgeries/Procedures:: hip arthritis 1960 Social & Family History - Family History Family Medical History: Noncontributory - Caffeine Use Caffeine Use: Reports: None ED ROS GENERAL - Review of Systems Review Of Systems: See Below Constitutional: Reports: No Symptoms Respiratory: Reports: No Symptoms Cardiovascular: Reports: No Symptoms GI/Abdominal: Reports: No Symptoms Musculoskeletal: Reports: Shoulder Pain Neurological: Reports: No Symptoms ED EXAM, GENERAL - Physical Exam Exam: See Below Exam Limited By: No Limitations General Appearance: Alert, No Apparent Distress Ears: Hearing Grossly Normal Nose: Normal Inspection Throat/Mouth: Normal Lips, Normal Voice, No Airway Compromise Head: Atraumatic, Normocephalic Neck: Normal Inspection, Supple, Non-Tender Respiratory/Chest: No Respiratory Distress, Lungs Clear, Normal Breath Sounds Cardiovascular: Normal Peripheral Pulses, Regular Rate, Rhythm GI/Abdominal: Normal Bowel Sounds, Soft, Non-Tender, No Distention Extremities: Non-Tender, Pedal Edema Neurological: Alert, Oriented, Normal Cognition Psychiatric: Normal Affect, Normal Mood Skin Exam: Warm, Dry, Normal Color, Other (superficial skin tear of right elbow) Course - Vital Signs Last Recorded V/S: Last Vital Signs Temp 97.5 F 02/20/19 23:05 Pulse 77 02/20/19 23:05 Resp 16 02/20/19 23:05 BP 174/73 H 02/20/19 23:05 Pulse Ox 97 02/20/19 23:05 - Re-Assessments/Exams Free Text/Narrative Re-Assessment/Exam: 02/21/19 00:03 X-ray of right shoulder completed. No previous image to compare. Uncertain of previous injury, current or degenerative changes. Radiology read is pending. Sling to right shoulder. good circulation noted after sling applied. Moving fingers well. Pain with moving right shoulder. External rotation is difficult r/t pain. She does use a walker at home to ambulate. Keep sling on for comfort over night and elevate arm on pillow and ice to shoulder. May take Tylenol as needed for relief of pain and no more than 3000mg in 24 hour period. RTC next week for follow-up. Expect muscular pain with this fall and each day should improve. 02/21/19 00:11 LE Skin tear to right elbow, cleansed and antibiotic oint applied and dressing per RN. Free Text/Narrative Re-Assessment/Exam: 02/21/19 10:25 Addendum: Radiology read of impacted, comminuted fracture through the neck and greater tuberosity of the proximal humerus. Consult with ortho. Will notify pt and family of x-ray report and ortho recommendation. continue with sling to arm for support and ice to area. 02/21/19 12:55 Le Notified daughter of x-ray results. Referral to Ortho for OV next Sunday in [place]. Recommend to continue with sling, immobilize head of humerus and upper humerus area as tolerated. Continue with ice to area. Departure - Departure Time of Disposition: 00:13 Disposition: Home, Self-Care 01 Condition: Good Clinical Impression: Right shoulder injury, Contusion of shoulder, right, Skin tear of right elbow without complication - Discharge Information *PRESCRIPTION DRUG MONITORING PROGRAM REVIEWED*: Not Applicable *COPY OF PRESCRIPTION DRUG MONITORING REPORT IN PATIENT ANDRE: Not Applicable Instructions: RICE Therapy for Routine Care of Injuries, [id number], How to Use a Sling, [id number] Referrals: PCP,None [Primary Care Provider] - Forms: ED Department Discharge Additional Instructions: Keep applied sling in place for next day, then may remove and use affected right arm as tolerated. Tylenol according to package instructions as needed for pain. Ice pack to affected area to help decrease swelling and for pain relief. Follow up in clinic next week for re-check of right shoulder. Call with any questions. - Assessment/Plan Plan: Sling to right shoulder. Keep sling on for comfort over night and elevate arm on pillow and ice to shoulder. May take Tylenol as needed for relief of pain and no more than 3000mg in 24 hour period. RTC next week for follow-up. Expect muscular pain with this fall and each day should improve. TC 02-21-2019: Consult with ortho after results of radiology read of x-ray with comminuted, impacted fracture through the neck and greater tuberosity of proximal humerus. Notified family of fx and to continue with sling, elevate and ice to area and immobilize. Ortho OV next Sunday for F/U. Co-morbidities of T2 diabetes, intermediate use of anticoagulant, and atrial fibrillation.
--- NOTE | 2019-02-21 08:56 | CR ---
DATE OF SERVICE: 02/20/19 CLINICAL DATA: Fall at home, right shoulder pain. RIGHT SHOULDER: No priors. There is diffuse osteopenia. There is an impacted, comminuted fracture through the neck and greater tuberosity of the proximal humerus. No other acute abnormalities. [id number] [facility]
[2019-02-21] MEDS ORDERED: Mupirocin Oint 22 GM Tube TOP ONE (12:02)
== END 2019-02-21 00:10 | disposition home or self-care (01) ==
LOC: LB.ED 22:45
DX: S51.011A Laceration without foreign body of right elbow, initial encounter (principal); S40.011A Contusion of right shoulder, initial encounter; E11.9 Type 2 diabetes mellitus without complications; I50.9 Heart failure, unspecified; I48.91 Unspecified atrial fibrillation; Z91.048 Other nonmedicinal substance allergy status; Z88.1 Allergy status to other antibiotic agents; Z88.8 Allergy status to other drugs, medicaments and biological substances; Z88.0 Allergy status to penicillin; Z88.2 Allergy status to sulfonamides; Z79.4 Long term (current) use of insulin; Z79.899 Other long term (current) drug therapy; Z79.01 Long term (current) use of anticoagulants; W18.30XA Fall on same level, unspecified, initial encounter; Y92.009 Unspecified place in unspecified non-institutional (private) residence as the place of occurrence of the external cause
CPT/HCPCS: 73030-RT; 99283; 99283-25